=== PATIENT | female | born 2005 | race Caucasian/White ===

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

== ENCOUNTER 2023-01-15 07:28 | Outpatient (RCR) | payer OTHER, SELFPAY | END 2023-02-08 23:59 | LOC: NS 07:28 | PROVIDERS: PCP Nurse Practitioner Family; Referring Provider Nurse Practitioner Family; Visit Provider Nurse Practitioner Family | DX: Z71.3 Dietary counseling and surveillance (principal); E66.9 Obesity, unspecified | CPT/HCPCS: 97803 ==

== ENCOUNTER 2023-02-10 07:24 | Outpatient (RCR) | payer OTHER, SELFPAY | END 2023-03-11 23:59 | LOC: NS 07:24 | PROVIDERS: PCP Nurse Practitioner Family; Referring Provider Nurse Practitioner Family; Visit Provider Nurse Practitioner Family | DX: Z71.3 Dietary counseling and surveillance (principal); E66.9 Obesity, unspecified | CPT/HCPCS: 97803 ==

== ENCOUNTER 2023-02-10 13:00 | Outpatient (CLI) | payer OTHER, SELFPAY ==
[2023-02-10 15:16] LABS: Hemoglobin 13.8 g/dL (12.0-15.0); Mean Corp Hgb Conc 31.4 g/dL (32-36); Mean Corpuscular Hgb 27.7 pg (27.0-32.0); Mean Corpuscular Volume 88.2 fL (81-99); Mean Platelet Vol. 10.5 fl (6.2-12.0); Platelet Count 239 K/mm3 (150-450); RBC Distribution Width SD 41.8 fl (35.1-43.9); Red Blood Count 4.99 M/mm3 (4.2-5.4); White Blood Count 9.3 K/mm3 (4.4-11.0)
[2023-02-10 15:35] LABS: AST(SGOT) 17 U/L (15-37); Alanine Aminotransfer ALT/SGPT 25 U/L (13-56); Albumin, Serum 3.9 g/dL (3.2-5.0); Alkaline Phosphatase 116 U/L (45-117); Anion Gap 6 (5-15); BUN 11 mg/dL (7-18); BUN/Creat Ratio 14.6 RATIO (10-20); Calcium,Total 9.6 mg/dL (8.5-10.1); Chloride 107 mmol/L (98-107); Creatinine, Serum 0.76 mg/dL (0.55-1.02); EST Glomerular Filtration Rate 104 mL/min (>60); Est Glom Filt Rate - Afr Amer 126 mL/min (>60); Globulin 4.1 g/dL (2.2-4.2); Glucose 96 mg/dL (74-106); Potassium 4.1 mmol/L (3.5-5.1); Sodium Level 139 mmol/L (136-145); Thyroid Stim Hormone (TSH) 1.69 uIU/mL (0.358-3.74)
[2023-02-10 15:45] LABS: Vitamin D,25 Hydroxy 26.2 ng/mL
== END 2023-02-10 23:59 | disposition home or self-care (01) ==
PROVIDERS: PCP Nurse Practitioner Family; Referring Provider Nurse Practitioner Family; Visit Provider Nurse Practitioner Family
DX: Z13.6 Encounter for screening for cardiovascular disorders (principal); E55.9 Vitamin D deficiency, unspecified; R63.5 Abnormal weight gain; Z68.51 Body mass index [BMI] pediatric, less than 5th percentile for age
CPT/HCPCS: 36415; 80053; 82306; 84443; 85027

== ENCOUNTER → 2023-08-20 | Outpatient (CLI) | payer OTHER, SELFPAY ==
[2023-08-20 15:41] LABS: Vitamin D,25 Hydroxy 25.9 ng/mL
[2023-08-20 15:54] LABS: ALB/GLOB Ratio 0.8 RATIO (0.9-2.4); AST(SGOT) 24 U/L (15-37); Alanine Aminotransfer ALT/SGPT 33 U/L (13-56); Albumin, Serum 3.7 g/dL (3.2-5.0); Alkaline Phosphatase 97 U/L (45-117); Anion Gap 5 (5-15); BUN 11 mg/dL (7-18); BUN/Creat Ratio 17.1 RATIO (10-20); Calcium,Total 9.7 mg/dL (8.5-10.1); Chloride 107 mmol/L (98-107); Cholesterol 165 mg/dL (200); Creatinine, Serum 0.64 mg/dL (0.55-1.02); EST Glomerular Filtration Rate 125 mL/min (>60); Est Glom Filt Rate - Afr Amer 151 mL/min (>60); Globulin 4.5 g/dL (2.2-4.2); Glucose 82 mg/dL (74-106); High Density Lipoprotein 18 mg/dL; Potassium 4.1 mmol/L (3.5-5.1); Protein, Total 8.2 g/dL (6.4-8.2); Sodium Level 137 mmol/L (136-145); Triglycerides 224 mg/dL; Very Low Density Lipoprotein 45 mg/dL (5-40)
== END | disposition home or self-care (01) ==
PROVIDERS: PCP Nurse Practitioner Family; Referring Provider Nurse Practitioner Family; Visit Provider Nurse Practitioner Family
DX: E55.9 Vitamin D deficiency, unspecified (principal); Z13.6 Encounter for screening for cardiovascular disorders
CPT/HCPCS: 36415; 80053; 80061; 82306

== ENCOUNTER → 2024-02-18 | Outpatient (CLI) | payer OTHER, SELFPAY ==
[2024-02-18 11:02] LABS: ALB/GLOB Ratio 0.9 RATIO (0.9-2.4); AST(SGOT) 17 U/L (15-37); Alanine Aminotransfer ALT/SGPT 31 U/L (13-56); Albumin, Serum 3.7 g/dL (3.2-5.0); Alkaline Phosphatase 101 U/L (45-117); Anion Gap 5 (5-15); BUN 10 mg/dL (7-18); BUN/Creat Ratio 13.6 RATIO (10-20); Calcium,Total 9.5 mg/dL (8.5-10.1); Chloride 107 mmol/L (98-107); Cholesterol 176 mg/dL (200); Creatinine, Serum 0.74 mg/dL (0.55-1.02); EST Glomerular Filtration Rate 106 mL/min (>60); Est Glom Filt Rate - Afr Amer 128 mL/min (>60); Globulin 4.1 g/dL (2.2-4.2); Glucose 128 mg/dL (74-106); High Density Lipoprotein 20 mg/dL; Potassium 4.1 mmol/L (3.5-5.1); Protein, Total 7.8 g/dL (6.4-8.2); Sodium Level 137 mmol/L (136-145); Triglycerides 366 mg/dL; Very Low Density Lipoprotein 73 mg/dL (5-40); Vitamin D,25 Hydroxy 34.1 ng/mL
== END | disposition home or self-care (01) ==
LOC: MTLAB 07:36
PROVIDERS: PCP Nurse Practitioner Family; Referring Provider Nurse Practitioner Family; Visit Provider Nurse Practitioner Family
DX: E78.5 Hyperlipidemia, unspecified (principal); E78.1 Pure hyperglyceridemia; E55.9 Vitamin D deficiency, unspecified
CPT/HCPCS: 36415; 80053; 80061; 82306

== ENCOUNTER → 2024-05-24 | Outpatient (CLI) | payer OTHER, SELFPAY ==
[2024-05-24 09:48] LABS: ALB/GLOB Ratio 1.4 RATIO (0.9-2.4); AST(SGOT) 23 U/L (<=31); Alanine Aminotransfer ALT/SGPT 20 U/L (<=34); Albumin, Serum 4.3 g/dL (3.5-5.0); Alkaline Phosphatase 63 U/L (35-104); Anion Gap 10 (5-15); BUN 12 mg/dL (4-19); BUN/Creat Ratio 14.8 RATIO (10-20); Calcium,Total 9.7 mg/dL (7.6-11.0); Carbon Dioxide 22.3 mmol/L (21.0-32.0); Chloride 107 mmol/L (98-108); EST Glomerular Filtration Rate 107 (>60); Glucose 107 mg/dL (70-99); Potassium 4.1 mmol/L (3.3-5.1); Protein, Total 7.3 g/dL (5.9-8.4); Sodium Level 139 mmol/L (133-145); Total Bilirubin 0.28 mg/dL (0.00-1.30)
[2024-05-24 10:34] LABS: Cholesterol 193 mg/dL (<=190); High Density Lipoprotein 21 mg/dL; Low Density Lipoprotein Calc. 140 mg/dL; Triglycerides 162 mg/dL; Very Low Density Lipoprotein 32 mg/dL (5-40); cholesterol:hdl ratio screen 9.23
== END | disposition home or self-care (01) ==
LOC: LAB 07:26
PROVIDERS: PCP Nurse Practitioner Family; Referring Provider Nurse Practitioner Family; Visit Provider Nurse Practitioner Family
DX: E78.5 Hyperlipidemia, unspecified (principal); E78.1 Pure hyperglyceridemia; E78.6 Lipoprotein deficiency; R73.01 Impaired fasting glucose
CPT/HCPCS: 36415; 80053; 80061

== ENCOUNTER → 2024-06-07 | Outpatient (CLI) | payer OTHER, SELFPAY ==
[2024-06-10 21:33] LABS: HPV Reflexed? NOT INDICATED
== END | disposition home or self-care (01) ==
LOC: LABSPEC 16:10
PROVIDERS: PCP Nurse Practitioner Family; Referring Provider Nurse Practitioner Family; Visit Provider Nurse Practitioner Family
DX: Z12.4 Encounter for screening for malignant neoplasm of cervix (principal)
CPT/HCPCS: 88175; G0145

== ENCOUNTER → 2024-10-28 | Outpatient (CLI) | payer OTHER, SELFPAY ==
--- OUTSIDE RECORDS SUMMARY | 2024-10-28 16:41 | XMS RPT_ITS | CCD ---
Author Organization [facility] Care Team Providers Care Crime Prevention Police Officer Name Role Phone Amarilys CLERICAL AND ADMINISTRATIVE WORKERS, CLERICAL AND ADMINISTRATIVE WORKERS-C Vito Miramontes Primary Care Pr ovider Amarilys CLERICAL AND ADMINISTRATIVE WORKERS, CLERICAL AND ADMINISTRATIVE WORKERS-C Vito Miramontes Referring Provi charline Dr. Kristy Frazier Attending Provider [phone] Dr. Chaevz Hernandez Attending Provider [phone] Amarilys GENAO, CLERICAL AND ADMINISTRATIVE WORKERS-C Vito Miramontes Primary Care Pr ovider Dr. Chavez Hernandez Attending Provider Amarilys CLERICAL AND ADMINISTRATIVE WORKERS, CLERICAL AND ADMINISTRATIVE WORKERS-C Vito Miramontes Referring Provi charline Dr. Kristy Frazier Attending Provider [phone] Amarilys CLERICAL AND ADMINISTRATIVE WORKERS, CLERICAL AND ADMINISTRATIVE WORKERS-C Vito Miramontes Primary Care Pr ovider Amarilys GENAO, CLERICAL AND ADMINISTRATIVE WORKERS-C Vito Miramontes Referring Provi charline Dr. Kristy Frazier Attending Provider [phone] Amarilys CLERICAL AND ADMINISTRATIVE WORKERS-C, Vito Miramontes Primary Care Provi charline Amarilys CLERICAL AND ADMINISTRATIVE WORKERS-CVito Attending Provider Amarilys CLERICAL AND ADMINISTRATIVE WORKERS-CVito Referring Provider Amarilys CLERICAL AND ADMINISTRATIVE WORKERS-C, Vito Miramontes Primary Care Provi charline Amarilys CLERICAL AND ADMINISTRATIVE WORKERS-CVito Attending Provider Amarilys CLERICAL AND ADMINISTRATIVE WORKERS-C, Vito Miramontes Referring Provider Giovanni GENAO-C, Marry Attending Provider Giovanni CLERICAL AND ADMINISTRATIVE WORKERS-C, Marry Referring Provider [phone] Freddie OLIVER, Dr. Wagner Attending Provider Mary CHOI, Dr. Byrne Attending Provider Alok CLERICAL AND ADMINISTRATIVE WORKERS-C, Sveen Attending Provider AMARILYS REPAIR ARMATURE WINDER HELPER - OUTREACH NURSE, VITO Burkett Primary Care Phys ician AMARILYS REPAIR ARMATURE WINDER HELPER - OUTREACH NURSE, VITO Burkett Primary Care U navailable BROWN REPAIR ARMATURE WINDER HELPER-OUTREACH NURSE, LEONOR Moreno Attending Unavai lable AMARILYS REPAIR ARMATURE WINDER HELPER - OUTREACH NURSE, VITO Burkett Primary Care U navailable AMARILYS REPAIR ARMATURE WINDER HELPER - OUTREACH NURSE, VITO Burkett Attending U navailable [place] CLERICAL AND ADMINISTRATIVE WORKERS-C, Vito Miramontes Primary Care Provi charline Amarilys CLERICAL AND ADMINISTRATIVE WORKERS-C, Vito Miramontes Referring Provider Giovanni CLERICAL AND ADMINISTRATIVE WORKERS-C, Marry Attending Provider [phone] Marry Davila Attending Unavailable Amarilys CLERICAL AND ADMINISTRATIVE WORKERS, Vito Miramontes Primary Care Unav ailable Amarilys CLERICAL AND ADMINISTRATIVE WORKERS, Vito Miramontes Referring Unav ailable [place] CLERICAL AND ADMINISTRATIVE WORKERS, Vito Miramontes Referring Unav ailable Dossi, Kristy Attending Unavailable Amarilys CLERICAL AND ADMINISTRATIVE WORKERS, Vito Miramontes Primary Care Unav ailable Dossi, Kristy Attending Unavailable Amarilys CLERICAL AND ADMINISTRATIVE WORKERS, Vito Miramontes Primary Care Unav ailable Amarilys CLERICAL AND ADMINISTRATIVE WORKERS, Vito Miramontes Referring Unav ailable Amarilys CLERICAL AND ADMINISTRATIVE WORKERS, Vito Miramontes Attending Unav ailable Amarilys CLERICAL AND ADMINISTRATIVE WORKERS, Vito Miramontes Primary Care Unav ailable Amarilys CLERICAL AND ADMINISTRATIVE WORKERS, Vito Miramontes Referring Unav ailable [place] CLERICAL AND ADMINISTRATIVE WORKERS, Vito Miramontes Attending Unav ailable Amarilys CLERICAL AND ADMINISTRATIVE WORKERS, Vito Miramontes Primary Care Unav ailable Marry Davila Referring Unavailable Marry Davila Attending Unavailable [place] CLERICAL AND ADMINISTRATIVE WORKERS, Vito Miramontes Primary Care Unav ailable Dossi, Kristy Attending Unavailable [place] CLERICAL AND ADMINISTRATIVE WORKERS, Vito Miramontes Referring Unav ailable [place] CLERICAL AND ADMINISTRATIVE WORKERS, Vito Miramontes Primary Care Unav ailable Amarilys CLERICAL AND ADMINISTRATIVE WORKERS, Vito Miramontes Referring Unav ailable Aris RECINOS, John Attending Unavailable [place] CLERICAL AND ADMINISTRATIVE WORKERS, Vito Miramontes Primary Care Unav ailable [place] CLERICAL AND ADMINISTRATIVE WORKERS, Vito Miramontes Referring Unav ailable Marry Davila Attending Unavailable Amarilys CLERICAL AND ADMINISTRATIVE WORKERS, Vito Miramontes Primary Care Unav ailable [place] CLERICAL AND ADMINISTRATIVE WORKERS, Vito Miramontes Referring Unav ailable Dossi, Kristy Attending Unavailable [place] CLERICAL AND ADMINISTRATIVE WORKERS, Vito Miramontes Primary Care Unav ailable Amarilys CLERICAL AND ADMINISTRATIVE WORKERS, Vito Miramontes Referring Unav ailable Dossi, Kristy Attending Unavailable [place] CLERICAL AND ADMINISTRATIVE WORKERS, Vito Miramontes Primary Care Unav ailable Amarilys CLERICAL AND ADMINISTRATIVE WORKERS, Vito Miramontes Primary Care Unav ailable Dossi, Kristy Attending Unavailable Amarilys CLERICAL AND ADMINISTRATIVE WORKERS, Vito Miramontes Referring Unav ailable Amarilys CLERICAL AND ADMINISTRATIVE WORKERS, Vito Miramontes Primary Care Unav ailable MaryChavez pinzon Attending Unavailable Amarilys CLERICAL AND ADMINISTRATIVE WORKERS, Vito Miramontes Primary Care Unav ailable Dossi, Kristy Attending Unavailable [place] CLERICAL AND ADMINISTRATIVE WORKERS, Vito Miramontes Referring Unav ailable Amarilys CLERICAL AND ADMINISTRATIVE WORKERS, Vito Miramontes Referring Unav ailable [place], Seven Attending Unavailable Amarilys CLERICAL AND ADMINISTRATIVE WORKERS, Vito Miramontes Primary Care Unav ailable Medications Current Medications Medication Drug Class(es) Dates Sig (Normalized) Sig (Original) azithromycin 250 mg oral tablet (1 source) Macrolide Antimicrobial Start: 09-16-2024 End: 09-21-2024 Zithromax 250 mg oral tablet Dose : 250 mg = 1 tab(s), Oral, qDay, follow directions on Z-Reinaldo, X 5 day(s), # 6 tab(s), 0 Refill(s), 09/21/24 11:50:00 AM EDT, Pharmacy: [id number], Tonsillitis Acute pharyngitis, 171.5, cm, 09/16/24 11:36:00 EDT, Height, 83, kg, 09/16/24 11:36:00 EDT, Dosing Weight Start Date: 09/16/24 Stop Date: 09/21/24 Status: Ordered Medication Dispense Status: Completed Quantity: 6.0 Unit: tab(s) Total Allowed Fills: 1 Fills Dispensed: 0 Indications: Acute tonsillitis, unspecified; Acute pharyngitis, unspecified; cholecalciferol 1.25 mg oral capsule (9 sources) Vitamin D Start: 05-24-2024 End: 11-20-2024 take 1 capsule by mouth once, then take 1 capsule by mouth every month cholecalciferol 1250 mcg (50,000 intl units) oral capsule Dose : 50,000 International_Unit = 1 cap(s), Oral, qmonth, # 4 cap(s), 1 Refill(s), Pharmacy: [facility] [id number], Vitamin D deficiency, 171.5, cm, 05/24/24 15:49:00 EDT, Height, kg, 05/24/24 15:49:00 EDT, Dosing Weight Start Date: 05/24/24 Stop Date: 11/20/24 Status: Ordered Medication Dispense Status: Completed Quantity: 4.0 Unit: cap(s) Total Allowed Fills: 2 Fills Dispensed: 0 Indications: Vitamin D deficiency, unspecified; Start: 2024 take 1 capsule by mo uth every month Cholecalciferol (Vitamin D3) 1,250 mcg (50,000 unit) capsule Active 1250 ug PO EVERY MONTH 2024 12:00am dexamethasone 6 mg oral tablet (1 source) Corticosteroid Start: 09-16-2024 End: 09-23-2024 dexAMETHasone 6 mg oral tablet Dose : 6 mg = 1 tab(s), Oral, qDay, X 7 day(s), # 7 tab(s), 0 Refill(s), 09/23/24 11:52:00 AM EDT, Pharmacy: [id number], Tonsillitis Acute pharyngitis, 171.5, cm, 09/16/24 11:36:00 EDT, Height, kg, 09/16/24 11:36:00 EDT, Dosing Weight Start Date: 09/16/24 Stop Date: 09/23/24 Status: Ordered Medication Dispense Status: Completed Quantity: 7.0 Unit: tab(s) Total Allowed Fills: 1 Fills Dispensed: 0 Indications: Acute tonsillitis, unspecified; Acute pharyngitis, unspecified; fenofibrate 145 mg oral tablet (9 sources) Peroxisome Proliferator Receptor alpha Agonist Start: 2024 End: 11-20-2024 take 1 tablet by mouth once daily Fenofibrate Nanocrystallized 145 mg tablet Active 145 mg PO daily 2024 12:00am sertraline 50 mg oral tablet (20 sources) Serotonin Reuptake Inhibitor Start: 2024 End: 11-20-2024 take 1 tablet by mouth once daily Sertraline 50 mg tablet Active 50 mg PO daily 2024 12:00am Start: 01-16-2022 End: 2024 take 1 tablet by mouth once daily Sertraline 25 mg tablet Discontinued 25 mg PO DAILY 30 0 January 16, 2022 1:00am 2024 8:35am Completed/Discontinued Medications Medication Drug Class(es) Dates Sig (Normalized) Sig (Original) acetaminophen 325 mg oral capsule (14 sources) Start: 01-16-2022 End: 05-20-2022 take 1 capsule by mouth once as needed Acetaminophen (Tylenol) 325 mg capsule Discontinued 325 mg PO ONCE as needed January 16, 2022 1:00am May 20, 2022 9:25am benzocaine 15 mg / menthol 10 mg oral lozenge (8 sources) Standardized Chemical Allergen Start: 12-24-2023 End: 2024 Benzocaine-Menthol (Chloraseptic Max) 15-10 mg lozenge Discontinued 1 NMA MUCOUS MEM .4 times daily as needed for sore throat 15 0 December 24, 2023 1:00am 2024 8:34am Levonorgestrel-Ethi nyl Estrad (14 sources) Progestin, Estrogen, Progestin-containi ng Intrauterine Device Start: 01-16-2022 End: 2024 take 1 tablet by mouth once daily Levonorgestrel-Ethi nyl Estrad (Vienva) 0.1-20 mg-mcg tablet Discontinued 1 {tbl} PO DAILY January 16, 2022 1:00am 2024 8:34am Start: 01-16-2022 take 1 tablet by manuel th once daily Levonorgestrel-Ethinyl Estrad (Vienva) 0.1-20 mg-mcg tablet Active 1 TABLET PO DAILY January 16, 2022 12:00am Start: 01-16-2022 take 1 tablet by manuel th once daily Levonorgestrel-Ethinyl Estrad (Vienva) 0.1-20 mg-mcg tablet Active 1 TABLET PO DAILY January 16, 2022 1:00am methocarbamol 500 mg oral tablet (3 sources) Muscle Relaxant Start: 08-03-2024 End: 10-06-2024 take 1 tablet by mouth three times daily as needed for pain Methocarbamol 500 mg tablet Discontinued 500 mg PO THREE TIMES A DAY as needed for pain/spasms 30 0 August 03, 2024 12:00am October 06, 2024 8:23am Problems Active Problems Problem Classification Problem Date Documented Da te Episodic/Chronic Acute and chronic tonsillitis (3 sources) Tonsillitis; Translations: [Acute tonsillitis, unspecified] Onset: 09-16-2024 09-16-2024 Episodic Anxiety disorders (15 sources) Social phobia; Translations: [Social phobia, unspecified] 01-16-2022 Chronic Conditions associated with dizziness or vertigo (20 sources) Lightheadedness; Translations: [Dizziness and giddiness] 01-16-2022 Episodic Diabetes mellitus without complication (1 source) Impaired fasting glycemia 02-19-2024 Episodic Disorders of lipid metabolism (3 sources) Hyperlipidemia; Translations: [Hypertriglyceride lyn] Onset: 05-30-2024 08-21-2023 Chronic Menstrual disorders (13 sources) Irregular periods; Translations: [Irregular menstruation, unspecified] 06-07-2024 Chronic Nutritional deficiencies (1 source) Vitamin D deficiency 02-16-2023 Chronic Other bone disease and musculoskeletal deformities (20 sources) Segmental and somatic dysfunction; Translations: [Segmental and somatic dysfunction of cervical region] 09-02-2022 Episodic Other bone disease and musculoskeletal deformities (18 sources) Segmental and somatic dysfunction of lumbar region; Translations: [Nonallopathic lesions, lumbar region] Onset: 08-03-2024 06-17-2022 Episodic Other bone disease and musculoskeletal deformities (18 sources) Segmental and somatic dysfunction of sacral region; Translations: [Nonallopathic lesions, sacral region] Onset: 08-03-2024 06-17-2022 Episodic Other bone disease and musculoskeletal deformities (18 sources) Segmental and somatic dysfunction of thoracic region; Translations: [Nonallopathic lesions, thoracic region] Onset: 08-03-2024 06-17-2022 Episodic Other bone disease and musculoskeletal deformities (10 sources) Segmental and somatic dysfunction of cervical region; Translations: [Nonallopathic lesions, cervical region] Onset: 08-03-2024 09-02-2022 Episodic Other bone disease and musculoskeletal deformities (1 source) Segmental and somatic dysfunction of pelvic region; Translations: [Segmental and somatic dysfunction of pelvic region] Onset: 08-03-2024 Episodic Other nutritional; endocrine; and metabolic disorders (1 source) 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 Other nutritional; endocrine; and metabolic disorders (1 source) Overweight in adulthood with body mass index of 25 or more but less than 30 02-16-2023 Episodic Other skin disorders (2 sources) Abnormal hair finding; Translations: [Other hair color and hair shaft abnormalities] 10-06-2024 Episodic Other skin disorders (1 source) Other hair color and hair shaft abnormalities; Translations: [Other hair color and hair shaft abnormalities] Onset: 10-06-2024 Episodic Residual codes; unclassified (1 source) Increased body mass index 02-17-2022 Episodic Residual codes; unclassified (2 sources) Reduced libido; Translations: [Decreased libido] 10-06-2024 Episodic Residual codes; unclassified (1 source) Decreased libido; Translations: [Decreased libido] Onset: 10-06-2024 Episodic Spondylosis; intervertebral disc disorders; other back problems (20 sources) Backache; Translations: [Dorsalgia, unspecified] 07-29-2022 Episodic Unclassified (3 sources) Patient encounter status 02-16-2023 Unclassified (1 source) Vaccination needed 02-17-2022 Past or Other Problems Problem Classification Problem Date Documented Da te Episodic/Chronic Other screening for suspected conditions (not mental disorders or infectious disease) (1 source) Encounter for screening for malignant neoplasm of cervix; Translations: [Encounter for screening for malignant neoplasm of cervix] Onset: 06-13-2024 Episodic Other upper respiratory infections (15 sources) Acute pharyngitis; Translations: [Acute pharyngitis, unspecified] Onset: 12-24-2023 12-24-2023 Episodic Results Test Name Value Interpretation Reference Range Facility Supervisor [employer] Office Visit Reporton 10-06-2024 Supervisor [employer] Office Visit Report [facility] [address], [address] [place] [address] OFFICE VISIT Date of Service: 10/06/24 MR#: [id number] Acct: [id number] Name: TAMI FUNG #: [id number] : 2005 Provider: ANURADHA Garnett Age/Sex: 19/F Location[place] [facility] Status: Signed Intake Vital Signs 07/28/24 10:34 10/06/24 08:24 10/06/24 08:24 Height 5 ft 9 in 5 ft 9 in 5 ft 9 in Weight: 182 lb 2 oz BMI 26.9 BP 125/84 H Intake Visit Reasons: Low Libido Sales Order Specialist Required: No Is patient in pain?: No Allergies No Known Allergies Allergy (Verified 10/06/24 08:20) Medications ???Medication ???Instructions ???Recorded ???Confirmed ???Type cholecalciferol (vitamin D3) 1,250 1,250 mcg PO QMONTH 04/21/24 History mcg (50,000 unit) capsule fenofibrate nanocrystallized 145 145 mg PO QDAY 04/21/24 10/06/24 H istory mg tablet sertraline 50 mg tablet 50 mg PO QDAY 04/21/24 10/06/24 Hi story Is last menstrual period known: Yes Last Menstrual Period: 09/15/24 Post menopausal: No Patient : No : No Control Method: none PFSH Medical History Sore throat Vitamin D deficiency High triglycerides Social anxiety disorder Family History Mother Diabetes Hormone imbalance Grandmother Diabetes Skin cancer Grandfather Diabetes Heart disease Social History adopted: No number of children: 0 current occupational status: employed 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 She reports she has noticed this more over the past year. No desire; currently sexually active with emiliano. One partner. She reports she has also experienced facial hair, irregular periods. She would like to pursue evaluation for this. Female Reproductive History Last Menstrual Period: 09/15/24 History 0 Elective abortions Hx Para Spontaneous abortions Hx # Term Pregnancies Ectopic pregnancies Hx # Pregnancies Multiple births # of living children ROS Const Constitutional: Denies fatigue Resp Resp: Denies cough Psych Psych: Denies anxiety (controlled on medications.) or depression Endo Endo: Denies cold intolerance, excessive sweating or heat intolerance Exam Const General: cooperative, healthy appearing, comfortable, no acute distress, well groomed and well hydrated Nutritional Appearance: well nourished Orientation: alert, awake and oriented x3 Resp Effort Inspection: normal respiratory effort, able to speak in complete sentences and symmetric chest movement Neuro General: patient alert, patient awake, patient oriented x3 and moves all extremities Psych Appearance: grossly normal Mental Status: mental status grossly normal Affect: normal affect Speech and Movement: speech and movement normal Attitude: cooperative Coding Level of Care Code Established Pt Off vis,est,level 3 Patient Type Established Diagnoses Abnormal facial hair L67.8 Low libido R68.82 Assessment and Plan Assessment and Plan (1) Abnormal facial hair: Status: Acute Plan: check labs; consider spirolactone. Final plan with results. (2) Low libido: Status: Acute Plan: Discussed scheduled thought processes. Encouraged to contact PCP for discussion of sertraline side effects and if this may be related/modified. Encouraged open discussion with emiliano. Orders: Orders Testosterone Free Today L67.8 - Other hair color and hair shaft abnormalities, R68.82 - Decreased libido DHEA Sulfate Today L67.8 - Other hair color and hair shaft abnormalities, R68.82 - Decreased libido Plan Details Goals Barriers: Goals Decrease pain Decrease spasm Improve ROM 10/06/24 0854 Date Marry Davila NP-C Cosigner Signature: Date (if applicable) CC: Normal [facility] No Panel Informationon 09-16 Culture Throat Normal throat nazia present Sensitivity Testing: Not Indicated [facility] Macario Rapid group A Streptococcus antigen assay at point of careOrdered By: Seven Dickinson on 08-16-2024 S. pyogenes Ag IA.rapid Ql (Throat) Negative [facility] Urgent Care Visit Reporton 0 08-16-2024 Urgent Care Visit Report [facility] [address], [address] [place] [address] OFFICE VISIT Date of Service: 08/16/24 MR#: [id number] Acct: [id number] Name: TAMI FUNG EDWARD Rep #: [id number] : 2005 Provider: ANURADHA Dickinson Age/Sex: 19/F Location: [facility] Status: Signed Intake Vital Signs 07/28/24 10:34 08/16/24 07:48 Height 5 ft 9 in BP 100/60 Position Sitting Respiration 16 Pulse 63 Temp 98.3 F Temp Source Oral Pulse Oximetry (%) 63 Oxygen Delivery Method room air Intake Visit Reasons: SORE THROAT Accompanied by: Self Allergies No Known Allergies Allergy (Verified 08/03/24 10:51) Nurse's Note: Patient has a sore throat that has been going on since Sat. 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 She otherwise denies any fever, cough, congestion, or ear pain. Denies any known sick contacts. ROS: As noted in HPI Physical Exam: VITALS: Reviewed. GEN: Healthy appearing, well-developed, NAD. PSYCH: AOx3. Normal memory, mood, and affect. HEENT -Eyes: -No discharge or redness; -Ears: -Mouth and throat: Moist mucous membranes. No tonsillar swelling or exudate noted. NECK: CV: Regular rate and rhythm LUNGS: Normal respiratory effort. Lungs clear bilaterally. SKIN: Warm, well perfused. No skin rashes or abnormal lesions noted. MSK: Normal gait. NEURO: Ambulating with no limitations. Normal muscle strength and tone. No focal deficits. Results POC Keri Rapid Strep POC Keri Rapid Strep Negative Last Edit by Jillian Michaud MA on 08/16/24 08:07 Coding Level of Care Code Off vis,new,level 3 Diagnoses Sore throat J02.9 Assessment and Plan Assessment and Plan (1) Sore throat: Status: Acute Plan: - suspect viral - Strep negative in the office today - Discussed supportive care treatment with fluids, rest and analgesia. - The patient may also use OTC cough and cold meds as needed and warm salt water gargles, throat lozenges and/or OTC throat spray as needed. - Contagious dz precautions discussed - The patient should follow up in one week if symptoms persist or worsen Orders: Orders POC Keri Rapid Strep A Today Plan Details Goals Barriers: Goals Decrease pain Decrease spasm Improve ROM 08/16/24 0808 Date Seven Velásquez Signature: Date (if applicable) CC: Normal [facility] Chiropractic Reporton 2024 Chiropractic Report [facility] Chiropractic [facility] [place] [address] OFFICE VISIT Date of Service: 08/03/24 MR#: [id number] Acct: [id number] Name: TAMI FUNG Rep #: [id number] : 2005 Provider: BENITO Anne Age/Sex: 19/F Location[place] [facility] Status: Signed Intake Vital Signs 07/28/24 10:34 Height 5 ft 9 in Intake Visit Reasons: LBP Chief Complaint: low back pain Is patient in pain?: Yes (low back ) Pain scale (1-10): 6 Allergies No Known Allergies Allergy (Verified 08/03/24 10:51) Medications ???Medication ???Instructions ???Recorded ???Confirmed ???Type cholecalciferol (vitamin D3) 1,250 1,250 mcg PO QMONTH 04/21/24 History mcg (50,000 unit) capsule fenofibrate nanocrystallized 145 145 mg PO QDAY 04/21/24 08/03/24 H istory mg tablet sertraline 50 mg tablet 50 mg PO QDAY 04/21/24 08/03/24 Hi story methocarbamol 500 mg tablet 500 mg PO TID PRN pain/spasms #30 08/03/24 08/03/24 Rx tabs PFSH Medical History Vitamin D deficiency High triglycerides Social anxiety disorder Family History Mother Diabetes Hormone imbalance Grandmother Diabetes Skin cancer Grandfather Diabetes Heart disease Social History adopted: No number of children: 0 current occupational status: employed 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 Donation Specialist HPI LBP Chief Complaint: Low back pain Visit Number: 4 Details: Belle is a 19 year old female here to f/u on low back pain. Pt. advises she has been experiencing low back spasms since her last adjustment. She states it is a constant aching pain across her low back. She rates her pain 6/10 today. She states prolonged sitting, standing, bending or walking aggravates her low back pain. She has been treating pain at home with ice, Ibuprofen,a heating pad and stretches often with little relief. Pt. denies new injury, numbness or tingling. Belle reports chiropractic adjustments and E-stim are helpful in relieving her pain and discomfort but it gradually returns. Onset: 07/20/24 Location: Neck/Back Duration: frequent Aggravating or associated factors: working,bending over, standing upright Relieving factors: chiro Treatment: stretching,chiro Pain Quality: aching and dull Exam Musc General: Yes normal posture, normal gait, joint tenderness and decreased range of motion; No muscle weakness Cervical Spine: Yes normal cervical lordosis Thoracic/Lumber: Yes thoracic and lumbar spine normal to inspection, Yes paraspinal tenderness on the right greater than left (lumbopelvic), Yes thoraco-lumbar spasm bilaterally (lumbar paraspinal, QL, glute medius) in the lower thoracic, in the upper lumbar, in the mid lumbar and in the lower lumbar and Yes misalignment T5, T6, T7, L3, L4, L5 and RIL Sacroiliac joints: on the right tender to palpation Office Procedures Procedures - Chiropractic Procedures Manipulation: Lumbar L3, Thoracic T10 and Pelvis RIL Manipulation: 3-4 regions Electronic Stimulation: Yes Electrical Stimulation: Lumbar 15 mins (9) mA Therapy Performed by:: Mona Solares Patient Response: positive Assessment and Plan Assessment and Plan (1) Segmental and somatic dysfunction of lumbar region: Status: Acute (2) Segmental and somatic dysfunction of thoracic region: Status: Acute (3) Segmental and somatic dysfunction of pelvic region: Status: Acute Orders: Orders Chiropractic Treatments 08/03/24 M99.01 - Segmental and somatic dysfunction of cervical region, M99.02 - Segmental and somatic dysfunction of thoracic region, M99.03 - Segmental and somatic dysfunction of lumbar region, M99.04 - Segmental and somatic dysfunction of sacral region, M99.05 - Segmental and somatic dysfunction of pelvic region Plan Patient was treated with non rotational adjustment, well tolerated. Provided her continued restrictions at home. Continue care, she has shown no progress. Plan Details Goals Barriers: Goals Decrease pain Decrease spasm Improve ROM Follow Up: 2x/wk Coding Level of Care Code No Charge Diagnoses Segmental and somatic dysfunction of lumbar region M99.03 Segmental and somatic dysfunction of thoracic region M99.02 Segmental and somatic dysfunction of pelvic region M99.05 CPT Codes Procedu (more content not included)... Normal [facility] Radiology Reporton Radiology Report [facility] [address] [place] [address] 08/02/24 1641 MR#: [id number] Acct: [id number] Name: TAMI FUNG EDWARD Rep #: [id number] : 2005 19 From: Kristy Frazier D.C. PCP: Vito Panda, [employer] Status:DEP AMB [place] [facility] X-Ray Report Impression Impression: Patients Name: TAMI FUNG : 2005 Views Submitted: a routine lumbosacral series was accomplished on 07/28/24 at [facility]. The lumbar series reveals in the AP view left spinous process rotation from L3-L4.??? There is no leg length inequality on the right/left.??? There is no rotation of the bilateral/right/left hardeep on sacrum.??? Sacrum is level. Soft tissue structures are unremarkable. The lateral lumbar view demonstrates a lordotic lumbar spine.??? The disc space is mildly reduced at L5-S1. Oblique views revealed normal facet joints. No indication of fracture or instability. IMPRESSION: 1. Mild decrease in L5/S1 disc height. Dictated by Performing Provider: Kristy Frazier Coding Level of Care Code Spine Lumbarsacral 4 views 08/02/24 1644 Date Kristy Frazier D.C. Signed Normal [facility] Chiropractic Reporton 06-23- 2025 Chiropractic Report [facility] [address] [place] [address] OFFICE VISIT Date of Service: 08/01/24 MR#: [id number] Acct: [id number] Name: TAMI FUNG Rep #: [id number] : 2005 Provider: BENITO Anne Age/Sex: 19/F Location[place] [facility] [place] Status: Signed Intake Vital Signs 07/28/24 10:34 Height 5 ft 9 in Intake Visit Reasons: LBP Chief Complaint: low back pain Is patient in pain?: Yes (low back mostly on right and down into gluteal) Pain scale (1-10): 5 Allergies No Known Allergies Allergy (Verified 08/01/24 16:22) Medications ???Medication ???Instructions ???Recorded ???Confirmed ???Type cholecalciferol (vitamin D3) 1,250 1,250 mcg PO QMONTH 04/21/24 History mcg (50,000 unit) capsule fenofibrate nanocrystallized 145 145 mg PO QDAY 04/21/24 08/01/24 H istory mg tablet sertraline 50 mg tablet 50 mg PO QDAY 04/21/24 08/01/24 Hi story PFSH Medical History Vitamin D deficiency High triglycerides Social anxiety disorder Family History Mother Diabetes Hormone imbalance Grandmother Diabetes Skin cancer Grandfather Diabetes Heart disease Social History adopted: No number of children: 0 current occupational status: employed 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 Pt. advises she had some improvement after her last adjustment but it's still there and more on right and down into gluteal. She states she has been having aching pain. She rates her pain 5/10 with the right side being slightly worse. She states prolonged sitting, standing, bending or walking aggravates her low back pain. She has been treating pain at home with ice, Ibuprofen,a heating pad and stretches often. Pt. denies numbness or tingling. Belle reports chiropractic adjustments and E-stim are helpful in relieving her pain and discomfort but it gradually returns. Onset: 07/20/24 Location: Neck/Back Duration: frequent Aggravating or associated factors: working,bending over, standing upright Relieving factors: chiro Treatment: stretching,chiro Pain Quality: aching and dull Exam Musc General: Yes normal posture, normal gait, joint tenderness and decreased range of motion; No muscle weakness Cervical Spine: Yes normal cervical lordosis Thoracic/Lumber: Yes thoracic and lumbar spine normal to inspection, Yes paraspinal tenderness on the right greater than left (lumbopelvic), Yes thoraco-lumbar spasm bilaterally (lumbar paraspinal, QL, glute medius) in the lower thoracic, in the upper lumbar, in the mid lumbar and in the lower lumbar and Yes misalignment T5, T6, T7, L3, L4, L5 and RIL Sacroiliac joints: on the right tender to palpation Office Procedures Procedures - Chiropractic Procedures Manipulation: Lumbar L3, Thoracic T10 and Pelvis RIL Manipulation: 3-4 regions Electronic Stimulation: Yes Electrical Stimulation: Cervical 15 mins (10) mA Therapy Performed by:: Mona Solares Traction, Mechanical: Yes Patient Response: positive Assessment and Plan Assessment and Plan (1) Segmental and somatic dysfunction of lumbar region: Status: Acute (2) Segmental and somatic dysfunction of thoracic region: Status: Acute (3) Segmental and somatic dysfunction of pelvic region: Status: Acute (4) Back pain: Status: Acute Qualifiers: Back pain location: low back pain Chronicity: acute Back pain laterality: right Sciatica presence: without sciatica Qualified Code(s): M54.50 - Low back pain, unspecified Orders: Orders Chiropractic Treatments 08/01/24 M99.01 - Segmental and somatic dysfunction of cervical region, M99.02 - Segmental and somatic dysfunction of thoracic region, M99.03 - Segmental and somatic d ysfunction of lumbar region, M99.04 - Segmental and somatic dysfunction of sacral region, M99.05 - Segmental and somatic dysfunction of pelvic region Plan Patient was treated without incident. She is showing slow improvement. Continue care. Plan Details Goals Barriers: Goals Decrease pain Decrease spasm Improve ROM Follow Up: 1 Week Coding Level of Care Code No Charge Diagnoses Segmental and somatic (more content not included)... Normal [facility] Chiropractic Reporton 2024 Chiropractic Report [facility] [address], [place] [address] OFFICE VISIT Date of Service: 07/28/24 MR#: [id number] Acct: [id number] Name: TAMI FUNG EDWARD Rep #: [id number] : 2005 Provider: BENITO Anne Age/Sex: 19/F Location: [facility] [place] Status: Signed Intake Vital Signs 07/25/24 09:24 Height 5 ft 9 in Intake Visit Reasons: LBP Chief Complaint: low back pain Is patient in pain?: Yes (low back) Pain scale (1-10): 7 Allergies No Known Allergies Allergy (Verified 07/28/24 10:12) Medications ???Medication ???Instructions ???Recorded ???Confirmed ???Type cholecalciferol (vitamin D3) 1,250 1,250 mcg PO QMONTH 04/21/24 History mcg (50,000 unit) capsule fenofibrate nanocrystallized 145 145 mg PO QDAY 04/21/24 07/28/24 H istory mg tablet sertraline 50 mg tablet 50 mg PO QDAY 04/21/24 07/28/24 Hi story PFSH Medical History Vitamin D deficiency High triglycerides Social anxiety disorder Family History Mother Diabetes Hormone imbalance Grandmother Diabetes Skin cancer Grandfather Diabetes Heart disease Social History adopted: No number of children: 0 current occupational status: employed 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 Pt. advises she had some improvement after her last adjustment but then stood up after bending over cleaning and had sharp pain in her low back. She states she has been having pain with intermittent sharp twinges ever since. She rates her pain 7/10 with the right side being slightly worse. She reports the pain extends into her bilateral hips and glutes. She states prolonged sitting, standing, bending or walking aggravates her low back pain. She has been treating pain at home with ice, Ibuprofen,a heating pad and stretches often. Pt. denies numbness or tingling. Belle reports chiropractic adjustments and E-stim are helpful in relieving her pain and discomfort but it gradually returns. Onset: 07/20/24 Location: Neck/Back Duration: frequent Aggravating or associated factors: working,bending over, standing upright Relieving factors: chiro Treatment: stretching,chiro Pain Quality: aching, dull and sharp Exam Musc General: Yes normal posture, normal gait, joint tenderness and decreased range of motion; No muscle weakness Cervical Spine: Yes normal cervical lordosis Thoracic/Lumber: Yes thoracic and lumbar spine normal to inspection, Yes paraspinal tenderness on the left greater than right (thoracolumbar), Yes thoraco-lumbar spasm bilaterally (lumbar para spinal, QL, glute medius) in the lower thoracic, in the upper lumbar, in the mid lumbar and in the lower lumbar and Yes misalignment T5, T6, T7, L3, L4, L5 and LIL Sacroiliac joints: bilaterally tender to palpation Office Procedures Procedures - Chiropractic Procedures Manipulation: Lumbar L3, Thoracic T10 and Pelvis LIL Manipulation: 3-4 regions Electronic Stimulation: Yes Electrical Stimulation: Lumbar 15 mins (26) mA Therapy Performed by:: Mona Solares Traction, Mechanical: Yes Patient Response: positive Assessment and Plan Assessment and Plan (1) Segmental and somatic dysfunction of lumbar region: Status: Acute (2) Segmental and somatic dysfunction of thoracic region: Status: Acute (3) Segmental and somatic dysfunction of pelvic region: Status: Acute Orders: Orders Chiropractic Treatments Today M99.01 - Segmental and somatic dysfunction of cervical region, M99.02 - Segmental and somatic dysfunction of thoracic region, M99.03 - Segmental and somatic dysfunction of lumbar region, M99.04 - Segmental and somatic dysfunction of sacral region, M99.05 - Segmental and somatic dysfunction of pelvic region L/S Spine Min 4 Views Today M99.03 - Segmental and somatic dysfunction of lumbar region, M99.05 - Segmental and somatic dysfunction of pelvic region Plan Patient xrays were obtained which revealed a normal lumbar spine with misalignment. Plan is to correct misalignment and decrease spasm from strain. Continue with acute care plan. Plan Details Goals Barriers: Goals Decrease pain Decrease spasm Improve ROM Follow Up: (more content not included)... Normal [facility] Chiropractic Reporton 2024 Chiropractic Report [facility] [address] [place] [address] OFFICE VISIT Date of Service: 07/25/24 MR#: [id number] Acct: [id number] Name: TAMI FUNG EDWARD Rep #: [id number] : 2005 Provider: BENITO Anne Age/Sex: 19/F Location: [facility] [place] Status: Signed Intake Vital Signs 06/07/24 11:31 07/25/24 09:24 Height 5 ft 9 in 5 ft 9 in Weight: 194 lb 2 oz BMI 28.6 BP 127/84 H Intake Visit Reasons: LBP Chief Complaint: low back pain Is patient in pain?: Yes (low back) Pain scale (1-10): 7 Allergies No Known Allergies Allergy (Verified 07/25/24 15:17) Medications ???Medication ???Instructions ???Recorded ???Confirmed ???Type cholecalciferol (vitamin D3) 1,250 1,250 mcg PO QMONTH 04/21/24 History mcg (50,000 unit) capsule fenofibrate nanocrystallized 145 145 mg PO QDAY 04/21/24 07/25/24 H istory mg tablet sertraline 50 mg tablet 50 mg PO QDAY 04/21/24 07/25/24 Hi story PFSH Medical History Vitamin D deficiency High triglycerides Social anxiety disorder Family History Mother Diabetes Hormone imbalance Grandmother Diabetes Skin cancer Grandfather Diabetes Heart disease Social History adopted: No number of children: 0 current occupational status: employed 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 Pt. advises she is having a flare up of low back pain. 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 She gave her dogs a bath last evening and her low back pain flared again d/t bending over for a length of time. She states her pain is equal across her low back bilaterally and extends into her bilateral hips and glutes. She rates her low back pain 7/10 today. She states prolonged sitting, standing, bending or walking aggravates her low back pain. She treats pain at home with a heating pad and stretches often. Pt. denies numbness or tingling. Belle reports chiropractic adjustments and E-stim are helpful in relieving her pain and discomfort but it gradually returns. Onset: 05/10/09 Location: Neck/Back Duration: frequent Aggravating or associated factors: working,bending over, standing upright Relieving factors: chiro Treatment: stretching,chiro Pain Quality: aching, dull and sharp Exam Musc General: Yes normal posture, normal gait, joint tenderness and decreased range of motion; No muscle weakness Cervical Spine: Yes normal cervical lordosis Thoracic/Lumber: Yes thoracic and lumbar spine normal to inspection, Yes Lasegue's sign negative, Yes straight leg raise negative bilaterally, Yes pain with thoraco-lumbar ROM with forward flexion and other (extension), Yes paraspinal tenderness on the left greater than right (thoracolumbar), Yes thoraco-lumbar spasm bilaterally (lumbar paraspinal, QL, glute medius) in the lower thoracic, in the upper lumbar, in the mid lumbar and in the lower lumbar and Yes misalignment T5, T6, T7, L3, L4, L5 and LIL Sacroiliac joints: bilaterally tender to palpation Office Procedures Procedures - Chiropractic Procedures Manipulation: Lumbar L3, Thoracic T10 and Pelvis LIL Manipulation: 3-4 regions Electronic Stimulation: Yes Electrical Stimulation: Lumbar 15 mins (19) mA Therapy Performed by:: Mona Solares Traction, Mechanical: Yes Patient Response: positive Assessment and Plan Assessment and Plan (1) Segmental and somatic dysfunction of lumbar region: Status: Acute (2) Segmental and somatic dysfunction of thoracic region: Status: Acute (3) Segmental and somatic dysfunction of pelvic region: Status: Acute Orders: Orders Chiropractic Treatments Today M99.01 - Segmental and somatic dysfunction of cervical region, M99.02 - Segmental and somatic dysfunction of thoracic region, M99.03 - Segmental and somatic dysfunction of lumbar region, M99.04 - Segmental and somatic dysfunction of sacral region Plan Patient had a sprain/strain injury which then was exacerbated by poor posture while bathing her dog. She was treated with gentle adjustment and it was well tolerated. Recommend Adriane str (more content not included)... Normal [facility] PAP I-G w/rfx hrHPV-Aptimaon 06-10-2024 ADEQ Comment Normal . [facility] Comment on above: Order Comment: Speci men Comment: [id number] Specimen Comment: No. of containers..01 ThinPrep Vial Result Comment: Sati sfactory for evaluation. Endocervical and/or squamous metaplastic cells (endocervical component) are present. Performed By: #### L 7400.0353 #### [facility] [address] [place], [address] COMM . Normal . [facility] Comment on above: Order Comment: Speci men Comment: [id number] Specimen Comment: No. of containers..01 ThinPrep Vial Performed By: #### L 7400.0353 #### [facility] [address] [place], [place], [id number] COMMENT Comment Normal . [facility] Comment on above: Order Comment: Speci men Comment: [id number] Specimen Comment: No. of containers..01 ThinPrep Vial Result Comment: This liquid based ThinPrep(R) pap test was screened with the use of an image guided system. Performed By: #### L 7400.0353 #### [facility] [address] [place], [place], [id number] DIAG Comment Normal . [facility] Comment on above: Order Comment: Speci men Comment: [id number] Specimen Comment: No. of containers..01 ThinPrep Vial Result Comment: NEGA TIVE FOR INTRAEPITHELIAL LESION OR MALIGNANCY. Performed By: #### L 7400.0353 #### [facility] [address] [place], [place], [id number] HPV RFLX Comment Normal . [facility] Comment on above: Order Comment: Speci men Comment: [id number] Specimen Comment: No. of containers..01 ThinPrep Vial Result Comment: The HPV DNA reflex criteria were not met with this specimen result therefore, no HPV testing was performed. Performed at: - [address] [id number] Contract Forester: Seema Barger MD, Phone: [phone] Performed By: #### L 7400.0353 #### [facility] [address] [place], [place], [address] PAPSMR Comment Normal . [facility] Comment on above: Order Comment: Speci men Comment: [id number] Specimen Comment: No. of containers..01 ThinPrep Vial Result Comment: The Pap smear is a screening test designed to aid in the detection of premalignant and malignant conditions of the uterine cervix. It is not a diagnostic procedure and should not be used as the sole means of detecting cervical cancer. Both false-positive and false-negative reports do occur. Performed By: #### L 7400.0353 #### [facility] [address] [place], [place], [address] PERFORM Comment Normal . [facility] Comment on above: Order Comment: Speci men Comment: [id number] Specimen Comment: No. of containers..01 ThinPrep Vial Result Comment: Shaunna Castillologist (ASCP) Performed By: #### L 7400.0353 #### [facility] [address] [place], [place], [id number] Cervical or vagninal specime n microscopic examination by cytology stain (reported asOrdered By: Marry Davila on 06-07-2024 Cytology report Cyto stain Doc (Cvx/Vag) Comment . [facility] Comment on above: The Pap smear is a s creening test designed to aid in thedetection of premalignant and malignant conditions of theuterine cervix. It is not a diagnostic procedure andshould not be used as the sole means of detecting cervicalcancer. Both false-positive and false-negative reports dooccur. Laboratory - CytologyOrdered By: Marry Davila on 06-07-2024 Shop Steward Cyto stain Nom (Cvx/Vag) [ID] Comment . [facility] Comment on above: Cade Argueta tolmao (ASCP) Laboratory - Miscellaneous t estsOrdered By: Marry Davila on 06-07-2024 Service comment (Unsp spec) [Interp] . . [facility] No Panel InformationOrdered By: Marry Davila on 06-07-2024 Pap Smear Specimen Adequacy Comment . [facility] Comment on above: Satisfactory for yaneth luation. Endocervical and/or squamous metaplasticcells (endocervical component) are present. Supervisor [employer] Office Visit Reporton 06-07-2024 Supervisor [employer] Office Visit Report [facility] [address], [address] [place] [address] OFFICE VISIT Date of Service: 06/07/24 MR#: [id number] Acct: [id number] Name: TAMI FUNG Rep #: [id number] : 2005 Provider: ANURADHA Garnett Age/Sex: 19/F Location: [facility] [place] Status: Signed with Addenda ADDENDUM by ANURADHA Davila on 06/07/24 at 1202 Assessment and Plan Assessment and Plan (1) Irregular menses: Status: Acute Plan: Labwork ordered; consider OCP; Discussed if she is sexually active she should be using a form of protection. Final plan with results of lab work. Orders: Orders PAP I-G w/rfx hrHPV-Aptima Today Z12.4 - Encounter for screening for malignant neoplasm of cervix Thyroid Stim Hormone (TSH) Today N92.6 - Irregular menstruation, unspecified T4 Free Direct Today N92.6 - Irregular menstruation, unspecified Vitamin D,25 Hydroxy Today N92.6 - Irregular menstruation, unspecified Hemoglobin A1c Today N92.6 - Irregular menstruation, unspecified Plan Details Goals Barriers: Goals Decrease pain Decrease spasm Improve ROM 06/07/24 1202 Date Marry Davila cc: * Signed Intake Vital Signs 02/10/23 07:30 06/07/24 11:31 Height 5 ft 9 in 5 ft 9 in Weight: 194 lb 2 oz BMI 28.6 BP 127/84 H 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 Is patient in pain?: No Allergies No Known Allergies Allergy (Verified 06/07/24 11:32) Medications ???Medication ???Instructions ???Recorded ???Confirmed ???Type cholecalciferol (vitamin D3) 1,250 1,250 mcg PO QMONTH 04/21/24 History mcg (50,000 unit) capsule fenofibrate nanocrystallized 145 145 mg PO QDAY 04/21/24 06/07/24 H istory mg tablet sertraline 50 mg tablet 50 mg PO QDAY 04/21/24 06/07/24 Hi story Is last menstrual period known: Yes Last Menstrual Period: 05/12/24 Post menopausal: No Control Method: none PFSH Medical History Vitamin D deficiency High triglycerides Social anxiety disorder Family History Mother Diabetes Hormone imbalance Grandmother Diabetes Skin cancer Grandfather Diabetes Heart disease Social History adopted: No number of children: 0 current occupational status: employed 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 She reports irregular menses; she has a menses about every other month. 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 She is sexually active; no form of control is being used; denies concerns for STD's; okay with a . Last PAP: due History of abnormal PAP: n/a Last mammogram: age 38 History of abnormal mammogram: n/a Colon cancer screening: age 43 Other preventative health care screenings: Vito Gonzalez; PCP. Female Reproductive History Last Menstrual Period: 05/12/24 ROS Const Constitutional: Denies chills, fatigue, fever(s), headache(s) or weight loss Eyes Eyes: Denies change in vision ENT ENT: Denies dizziness Resp Resp: Denies cough GI GI: Denies abdominal pain, constipation or nausea : Denies difficulty voiding, dysuria, hematuria, nipple discharge, pelvic pain, prolapse symptoms, urinary incontinence, vaginal discharge, vaginal dryness, vaginal odor or vaginal pruritus Skin Skin/Breast: Denies alopecia, rash, breast mass, breast pain, breast skin changes or nipple discharge Neuro Neuro: Denies dizziness Psych Psych: Denies anxiety (controlled on medications.) or depression Endo Endo: Denies cold intolerance, excessive sweating or heat intolerance Exam Const General: cooperative, healthy appearing, comfortable, no acute distress, well groomed and well hydrated Nutritional Appearance: well nourished Orientation: alert, awake and oriented x3 HENMT Head: normal to inspection and normocephalic Ears: hearing grossly normal bilaterally and external ears normal Nose: (more content not included)... Normal [facility] Anion gap in Serum or Plasma Ordered By: Vito Panda on 05-24-2024 Anion gap [Moles/Vol] 10 mmol/L 06-23 [facility] BUN/creatinine ratioOrdered By: Vito Panda on 05-24-2024 Urea nitrogen/Creatinine [Mass ratio] 14.8 mg/mg 11-28 [facility] Bilirubin, totalOrdered By: Vito Panda on 05-24-2024 Bilirubin [Mass/Vol] 0.28 mg/dL 0.00-1.30 [facility] Calculated very low density lipoprotein (VLDL) cholesterol measurementOrdered By: Vito Panda on 05-24-2024 Calculated very low density lipoprotein (VLDL) cholesterol measurement 32 mg/dL [facility] VLDL Cholesterol 32 mg/dL [facility] Carbon dioxide, total [Moles /volume] in Central venous bloodOrdered By: Vito Panda on 05-24-2024 CO2 [Moles/Vol] 22.3 mmol/L 21.0-32.0 [facility] Chloride assayOrdered By: Genesis Panda on 05-24-2024 Chloride [Moles/Vol] 107 mmol/L 98-108 [facility] Comprehensive Metabolic Prof ilon 05-24-2024 Albumin [Mass/Vol] 4.3 g/dL Normal 3.5-5.0 [facility] Comment on above: Performed By: #### L 500.7830, L500.4050 #### [facility] Laboratory [facility] [place], [address] Albumin/Globulin [Mass ratio] 1.4 {ratio} Normal 0.9-2.4 [facility] Comment on above: Performed By: #### L 500.4100, L500.4050 #### [facility] [address] [place], [address] ALK PHOS 63 U/L Normal 35-104 [facility] Comment on above: Performed By: #### L 500.4100, L500.4050 #### [facility] [address] [place], [address] ALT [Catalytic activity/Vol] 20 U/L Normal <=34 [facility] Comment on above: Performed By: #### L 500.4100, L500.4050 #### [facility] [address] [place], [address] AST [Catalytic activity/Vol] 23 U/L Normal <=31 [facility] Comment on above: Performed By: #### L 500.4100, L500.4050 #### [facility] [address] [place], [address] Bilirubin [Mass/Vol] 0.28 mg/dL Normal 0.00-1.30 [facility] Comment on above: Performed By: #### L 500.4100, L500.4050 #### [facility] [address] [place], [address] BUN/CRE 14.8 RATIO Normal 10-20 [facility] Comment on above: Performed By: #### L 500.4100, [id number] #### [facility] [address] [place], [address] Calcium [Mass/Vol] 9.7 mg/dL Normal 7.6-11.0 [facility] Comment on above: Performed By: #### L 500.4100, [id number] #### [facility] [address] [place], [address] Chloride [Moles/Vol] 107 mmol/L Normal 98-108 [facility] Comment on above: Performed By: #### L 500.4100, [id number] #### [facility] [address] [place], [address] CO2 [Moles/Vol] 22.3 mmol/L Normal 21.0-32.0 [facility] Comment on above: Performed By: #### L 500.4100, [id number] #### [facility] [address] [place], [address] Creatinine [Mass/Vol] 0.80 mg/dL Normal 0.70-1.20 [facility] Comment on above: Performed By: #### L 500.4100, [id number] #### [facility] [address] [place], [address] GAP 10 Normal 5-15 [facility] Comment on above: Performed By: #### L 500.4100, [id number] #### [facility] [address] [place], [address] GFR/1.73 sq M.predicted among non-blacks MDRD (S/P/Bld) [Vol rate/Area] 107 mL/min/{1.73_m2} Normal >60 [facility] Comment on above: Result Comment: mL/m in/1.73m2 CKD-EPI Creatinine Equation (2020) Performed By: #### L 500.4100, L500.4050 #### [facility] [address] [place], [address] Globulin (S) [Mass/Vol] 3.0 g/dL Normal 2.2-4.2 [facility] Comment on above: Performed By: #### L 500.4100, [id number] #### [facility] [address] [place], [address] Glucose [Mass/Vol] 107 mg/dL High 70-99 [facility] Comment on above: Performed By: #### L 500.4100, [id number] #### [facility] [address] [place], [address] Potassium [Moles/Vol] 4.1 mmol/L Normal 3.3-5.1 [facility] Comment on above: Performed By: #### L 500.4100, [id number] #### [facility] [address] [place], [address] Sodium [Moles/Vol] 139 mmol/L Normal 133-145 [facility] Comment on above: Performed By: #### L 500.4100, [id number] #### [facility] [address] [place], [address] T PROT 7.3 g/dL Normal 5.9-8.4 [facility] Comment on above: Performed By: #### L 500.4100, [id number] #### [facility] [address] [place], [address] Urea nitrogen [Mass/Vol] 12 mg/dL Normal 4-19 [facility] Comment on above: Performed By: #### L 500.4100, [id number] #### [facility] [address] [place], [address] GFR/1.73 sq M.predicted matheus g non-blacks MDRD (S/P/Bld) [Vol rate/Area]Ordered By: Vito Panda on 05-24-2024 Estimated GFR (MDRD) Non-Af Amer 107 >60 [facility] Comment on above: mL/min/1.73m2 CKD-EP I Creatinine Equation (2020) Glomerular filtration rate ( GFR) estimation/1.73 sq m using serum, plasma, or whole bOrdered By: Vito Panda on 05-24-2024 GFR/1.73 sq M.predicted among non-blacks MDRD (S/P/Bld) [Vol rate/Area] 107 mL/min/{1.73_m2} >60 [facility] Comment on above: mL/min/1.73m2 CKD-EP I Creatinine Equation (2020) LDL calc ser/plasOrdered By: Vito Panda on 05-24-2024 Cholesterol in LDL [Mass/Vol] 140 mg/dL [facility] Comment on above: Atuojwivoe=107-142 m g/dL & Higher Psyo=595 mg/dL or greater LDL Cholesterol, Calculated 140 mg/dL [facility] Comment on above: Qtmvsgblnz=783-878 m g/dL & Higher Gkhu=138 mg/dL or greater Laboratory - Chemistry and C hemistry - challengeOrdered By: Vito Panda on 05-24-2024 AST [Catalytic activity/Vol] 23 U/L <32 [facility] Lipid Profileon 05-24-2024 CHOL:HDL 9.23 Normal [facility] Comment on above: Performed By: #### L 500.4100, L500.4050 #### [facility] [address] [place], [place], [id number]) Cholesterol [Mass/Vol] 193 mg/dL High <=190 [facility] Comment on above: Result Comment: Chol esterol level, Desirable <200 mg/dL Borderline high cholesterol 200-239 mg/dL High cholesterol >=240 mg/dL Recommendations of the NCEP Adult Treatment Panel for the following risk-cutoff thresholds for the [place] population. Performed By: #### L 500.4100, L500.4050 #### [facility] [address] [place], [address] Cholesterol in HDL [Mass/Vol] 21 mg/dL Low [facility] Comment on above: Result Comment: Kayla onal Cholesterol Education Program (NCEP) guidelines: <40 mg/dL: Low HDL-cholesterol (major risk factor for CHD) >= 60 mg/dL: High HDL-cholesterol (negative risk factor for CHD) HDL-cholesterol is affected by a number of factors, e.g. smoking, exercise, hormones, sex and age. Performed By: #### L 500.4100, L500.4050 #### [facility] [address] [place], [address] Cholesterol in LDL [Mass/Vol] 140 mg/dL Normal [facility] Comment on above: Result Comment: Bord fyhiae=431-980 mg/dL Higher Eczi=067 mg/dL or greater Performed By: #### L 500.4100, L500.4050 #### [facility] [address] [place], [address] Cholesterol in VLDL [Mass/Vol] 32 mg/dL Normal 5-40 [facility] Comment on above: Performed By: #### L 500.4100, L500.4050 #### [facility] [address] [place], [address] Triglyceride [Mass/Vol] 162 mg/dL Normal [facility] Comment on above: Result Comment: The drugs N-Acetylcysteine and Metamizole may falsely depress this assay. Normal range: <150 mg/dL Borderline High: 150-199 mg/dL High: 200-499 mg/dL Very High: >500 mg/dL Performed By: #### L 500.4100, [id number] #### [facility] [address] [place], [address] Potassium (Unsp spec) [Mass/ Vol]Ordered By: Vito Panda on 05-24-2024 Potassium [Moles/Vol] 4.1 mmol/L 3.3-5.1 [facility] Potassium measurement (mass/ volume)Ordered By: Vito Panda on 05-24-2024 Potassium (Unsp spec) [Mass/Vol] 4.1 mmol/L 3.3-5.1 [facility] Screening total cholesterol/ high density lipoprotein (HDL) cholesterol ratioOrdered By: Vito Panda on 05-24-2024 Cholesterol.total/Manisha sterol in HDL [Mass ratio] 9.23 {ratio} [facility] Serum creatinine measurement (mass/volume)Ordered By: Vito Panda on 05-24-2024 Creatinine [Mass/Vol] 0.80 mg/dL 0.70-1.20 [facility] Serum globulin measurementOr dered By: Vito Panda on 05-24-2024 Globulin (S) [Mass/Vol] 3.0 g/dL 2.2-4.2 [facility] Serum glucose measurement (m ass/volume)Ordered By: Vito Panda on 05-24-2024 Glucose [Mass/Vol] 107 mg/dL High 70-99 [facility] Serum or plasma alanine caro otransferase (ALT) measurementOrdered By: Vito Panda on 05-24-2024 ALT [Catalytic activity/Vol] 20 U/L <35 [facility] Serum or plasma albumin zhen urement (mass/volume)Ordered By: Vito Panda on 05-24-2024 Albumin [Mass/Vol] 4.3 g/dL 3.5-5.0 [facility] Serum or plasma albumin/glob ulin mass ratioOrdered By: Vito Panda on 05-24-2024 Albumin/Globulin [Mass ratio] 1.4 {ratio} 0.9-2.4 [facility] Serum or plasma alkaline eileen sphatase measurementOrdered By: Vito Panda on 05-24-2024 ALP [Catalytic activity/Vol] 63 U/L 35-104 [facility] Serum or plasma calcium zhen urement (mass/volume)Ordered By: Vito Panda on 05-24-2024 Calcium [Mass/Vol] 9.7 mg/dL 7.6-11.0 [facility] Serum or plasma cholesterol in HDL measurement (mass/volume)Ordered By: Vito Panda on 05-24-2024 Cholesterol in HDL [Mass/Vol] 21 mg/dL Low >40 [facility] Comment on above: National Cholesterol Education Program (NCEP) guidelines:<40 mg/dL: Low HDL-cholesterol (major risk factor for CHD)>= 60 mg/dL: High HDL-cholesterol (negative risk factor for CHD)HDL-cholesterol is affected by a number of factors, e.g. smoking, exercise, hormones, sex and age. Serum or plasma cholesterol measurement (mass/volume)Ordered By: Vito Panda on 05-24-2024 Cholesterol [Mass/Vol] 193 mg/dL High <191 [facility] Comment on above: Cholesterol level, D esirable <200 mg/dLBorderline high cholesterol 200-239 mg/dLHigh cholesterol >=240 mg/dLRecommendations of the NCEP Adult Treatment Panel for the following risk-cutoff thresholds for the [place] population. Serum or plasma urea nitroge n measurement (mass/volume)Ordered By: Vito Panda on 05-24-2024 Urea nitrogen [Mass/Vol] 12 mg/dL 4-19 [facility] Sodium levelOrdered By: Mingo Panda on 05-24-2024 Sodium [Moles/Vol] 139 mmol/L 133-145 [facility] Total proteinOrdered By: Xavier Panda on 05-24-2024 Protein [Mass/Vol] 7.3 g/dL 5.9-8.4 [facility] Triglycerides measurementOrd ered By: Vito Panda on 05-24-2024 Triglyceride [Mass/Vol] 162 mg/dL <199 [facility] Comment on above: The drugs N-Acetylcy steine and Metamizole may falsely depress this assay. Normal range: <150 mg/dLBorderline High: 150-199 mg/dLHigh: 200-499 mg/dLVery High: >500 mg/dL 42-IH-Gnttxty DOrdered By: Dayna Panda on 02-18-2024 Vitamin D 25-Hydroxy 34.1 ng/mL [facility] Comment on above: Vitamin D 25(OH) Sta tus Range Deficiency <20 ng/mL (50nmol/L) Insufficiency 20 - 30 ng/mL (50 - 75 nmol/L) Sufficiency 30 - 100 ng/mL (75 - 250 nmol/L) Toxicity >100 ng/mL (>250 nmol/L) Albumin to globulin ratioOrd ered By: Vito Panda on 02-18-2024 Albumin/Globulin [Mass ratio] 0.9 {ratio} 0.9-2.4 [facility] Bilirubin, totalOrdered By: Vito Panda on 02-18-2024 Bilirubin [Mass/Vol] 0.30 mg/dL 0.20-1.00 [facility] Comment on above: For patients on eltr ombopag therapy, use of Dimension Agate TBIL is not recommended. Blood urea nitrogen (BUN)/cr eatinine ratioOrdered By: Vito Panda on 02-18-2024 Urea nitrogen/Creatinine [Mass ratio] 13.6 mg/mg 10-20 [facility] Carbon dioxide measurementOr dered By: Vito Panda on 02-18-2024 CO2 [Moles/Vol] 25.0 mmol/L 21.0-32.0 [facility] Chloride measurementOrdered By: Vito Panda on 02-18-2024 Chloride [Moles/Vol] 107 mmol/L 98-107 [facility] Comprehensive Metabolic Prof ilon 02-18-2024 Albumin [Mass/Vol] 3.7 g/dL Normal 3.2-5.0 [facility] Comment on above: Performed By: #### L 506.1000, L500.4050, L500.4100 #### [facility] [address] [place], [address] Albumin/Globulin [Mass ratio] 0.9 {ratio} Normal 0.9-2.4 [facility] Comment on above: Performed By: #### L 506.1000, L500.4050, L500.4100 #### [facility] [address] [place], [address] ALK P 101 U/L Normal 45-117 [facility] Comment on above: Performed By: #### L 506.1000, L500.4050, L500.4100 #### [facility] [address] [place], [address] ALT [Catalytic activity/Vol] 31 U/L Normal 13-56 [facility] Comment on above: Performed By: #### L 506.1000, L500.4050, L500.4100 #### [facility] [address] [place], [address] AST [Catalytic activity/Vol] 17 U/L Normal 15-37 [facility] Comment on above: Performed By: #### L 506.1000, L500.4050, L500.4100 #### [facility] [address] [place], [address] Bilirubin [Mass/Vol] 0.30 mg/dL Normal 0.20-1.00 [facility] Comment on above: Result Comment: For patients on eltrombopag therapy, use of Dimension Agate TBIL is not recommended. Performed By: #### L 506.1000, L500.4050, L500.4100 #### [facility] [address] [place], [address] BUN/CRE 13.6 RATIO Normal 10-20 [facility] Comment on above: Performed By: #### L 506.1000, L500.4050, L500.4100 #### [facility] [address] [place], [address] CA,Total 9.5 mg/dL Normal 8.5-10.1 [facility] Comment on above: Performed By: #### L 506.1000, L500.4050, L500.4100 #### [facility] [address] [place], [address] Chloride [Moles/Vol] 107 mmol/L Normal 98-107 [facility] Comment on above: Performed By: #### L 506.1000, L500.4050, L500.4100 #### [facility] [address] [place], [address] CO2 [Moles/Vol] 25.0 mmol/L Normal 21.0-32.0 [facility] Comment on above: Performed By: #### L 506.1000, L500.4050, L500.4100 #### [facility] [address] [place], [address] Creatinine [Mass/Vol] 0.74 mg/dL Normal 0.55-1.02 [facility] Comment on above: Result Comment: The validity of the calculated GFR GFRAA in patients over 70 years has not been determined. Clinical correlation is essential. Performed By: #### L 506.1000, L500.4050, L500.4100 #### [facility] [address] [place], [address] EST GFR - AA 128 mL/min Normal >60 [facility] Comment on above: Result Comment: Afri can [place] GFR Calc Performed By: #### L 506.1000, L500.4050, L500.4100 #### [facility] [address] [place], [address] GAP 5 Normal 5-15 [facility] Comment on above: Performed By: #### L 506.1000, L500.4050, L500.4100 #### [facility] [address] [place], [address] GFR/1.73 sq M.predicted among non-blacks MDRD (S/P/Bld) [Vol rate/Area] 106 mL/min/{1.73_m2} Normal >60 [facility] Comment on above: Result Comment: Non- GFR Calc Performed By: #### L 506.1000, L500.4050, L500.4100 #### [facility] [address] [place], [address] Globulin (S) [Mass/Vol] 4.1 g/dL Normal 2.2-4.2 [facility] Comment on above: Performed By: #### L 506.1000, L500.4050, L500.4100 #### [facility] [address] [place], [address] Glucose [Mass/Vol] 128 mg/dL High 74-106 [facility] Comment on above: Result Comment: Fast ing Glucose result greater than or equal to 126 mg/dL suggests DIABETES MELLITUS per A.D.A. criteria. Performed By: #### L 506.1000, L500.4050, L500.4100 #### [facility] [address] [place], [address] Potassium [Moles/Vol] 4.1 mmol/L Normal 3.5-5.1 [facility] Comment on above: Performed By: #### L 506.1000, L500.4050, L500.4100 #### [facility] [address] [place], [address] Sodium [Moles/Vol] 137 mmol/L Normal 136-145 [facility] Comment on above: Performed By: #### L 506.1000, L500.4050, L500.4100 #### [facility] [address] [place], [address] T PROT 7.8 g/dL Normal 6.4-8.2 [facility] Comment on above: Performed By: #### L 506.1000, L500.4050, L500.4100 #### [facility] [address] [place], [address] Urea nitrogen [Mass/Vol] 10 mg/dL Normal 7-18 [facility] Comment on above: Performed By: #### L 506.1000, L500.4050, L500.4100 #### [facility] [address] [place], [address] Estimated glomerular filtrat ion rate (GFR) AmericanOrdered By: Vito Panda on 02-18-2024 Estimated GFR (MDRD) Amer 128 mL/min >60 [facility] Comment on above: GFR Calc Glomerular filtration rate ( GFR) estimationOrdered By: Vito Panda on 02-18-2024 Estimated GFR (MDRD) Non-Af Amer 106 mL/min >60 [facility] Comment on above: Non- GFR Calc Glucose measurementOrdered B y: Vito Panda on 02-18-2024 Glucose [Mass/Vol] 128 mg/dL High 74-106 [facility] Comment on above: Fasting Glucose resu lt greater than or equal to 126 mg/dL suggests DIABETES MELLITUS per A.D.A. criteria. High density lipoprotein (HD L) measurementOrdered By: Vito Panda on 02-18-2024 Cholesterol in HDL [Mass/Vol] 20 mg/dL Low >40 [facility] Comment on above: The drugs N-Acetylcy steine and Metamizole may falsely depress this assay. Reference Range HDL <40 mg/dL Low HDL Cholesterol HDL >or= 60 mg/dL High HDL Cholesterol Laboratory - Chemistry and C hemistry - challengeOrdered By: Vito Panda on 02-18-2024 AST [Catalytic activity/Vol] 17 U/L 15-37 [facility] Lipid Profileon 02-18-2024 Cholesterol [Mass/Vol] 176 mg/dL Normal 200 [facility] Comment on above: Result Comment: <200 mg/dL Desirable 200-240 mg/dL Borderline >240 mg/dL High Risk Performed By: #### L 506.1000, L500.4050, L500.4100 #### [facility] [address] [place], [address] Cholesterol in HDL [Mass/Vol] 20 mg/dL Low [facility] Comment on above: Result Comment: The drugs N-Acetylcysteine and Metamizole may falsely depress this assay. Reference Range HDL <40 mg/dL Low HDL Cholesterol HDL >or= 60 mg/dL High HDL Cholesterol Performed By: #### L 506.1000, L500.4050, L500.4100 #### [facility] [address] [place], [address] Cholesterol in LDL [Mass/Vol] 83 mg/dL Normal 0-130 [facility] Comment on above: Performed By: #### L 506.1000, L500.4050, L500.4100 #### [facility] [address] [place], [address] Cholesterol in VLDL [Mass/Vol] 73 mg/dL High 5-40 [facility] Comment on above: Performed By: #### L 506.1000, L500.4050, L500.4100 #### [facility] [address] [place], [address] Triglyceride [Mass/Vol] 366 mg/dL High [facility] Comment on above: Result Comment: The drugs N-Acetylcysteine and Metamizole may falsely depress this assay. Serum Triglycerides Reference Interval Normal <150 mg/dL Borderline high 150 - 199 mg/dL High 200 - 499 mg/dL Very High > or = 500 mg/dL Performed By: #### L 506.1000, L500.4050, L500.4100 #### [facility] [address] [place], [address] Low density lipoprotein (LDL ) cholesterol measurementOrdered By: Vito Panda on 02-18-2024 Cholesterol in LDL [Mass/Vol] 83 mg/dL 0-130 [facility] Potassium measurementOrdered By: Vito Panda on 02-18-2024 Potassium [Moles/Vol] 4.1 mmol/L 3.5-5.1 [facility] Serum anion gap measurementO rdered By: Vito Panda on 02-18-2024 Anion gap [Moles/Vol] 5 mmol/L 5-15 [facility] Serum globulin measurementOr dered By: Vito Panda on 02-18-2024 Globulin (S) [Mass/Vol] 4.1 g/dL 2.2-4.2 [facility] Serum or plasma alanine caro otransferase (ALT) measurementOrdered By: Vito Panda on 02-18-2024 ALT [Catalytic activity/Vol] 31 U/L 13-56 [facility] Serum or plasma albumin zhen urement (mass/volume)Ordered By: Vito Panda on 02-18-2024 Albumin [Mass/Vol] 3.7 g/dL 3.2-5.0 [facility] Serum or plasma alkaline eileen sphatase measurementOrdered By: Vito Panda on 02-18-2024 ALP [Catalytic activity/Vol] 101 U/L 45-117 [facility] Serum or plasma calcium zhen urement (mass/volume)Ordered By: Vito Panda on 02-18-2024 Calcium [Mass/Vol] 9.5 mg/dL 8.5-10.1 [facility] Serum or plasma cholesterol measurement (mass/volume)Ordered By: Vito Panda on 02-18-2024 Cholesterol [Mass/Vol] 176 mg/dL <200 [facility] Comment on above: <200 mg/dL Desirable 200-240 mg/dL Borderline >240 mg/dL High Risk Serum or plasma creatinine m easurement (mass/volume)Ordered By: Vito Panda on 02-18-2024 Creatinine [Mass/Vol] 0.74 mg/dL 0.55-1.02 [facility] Comment on above: The validity of the calculated GFR & GFRAA in patients over 70 years has not been determined. Clinical correlation is essential. Serum or plasma urea nitroge n measurement (mass/volume)Ordered By: Vito Panda on 02-18-2024 Urea nitrogen [Mass/Vol] 10 mg/dL 7-18 [facility] Sodium levelOrdered By: Mingo Panda on 02-18-2024 Sodium [Moles/Vol] 137 mmol/L 136-145 [facility] Total proteinOrdered By: Xavier Panda on 02-18-2024 Protein [Mass/Vol] 7.8 g/dL 6.4-8.2 [facility] Triglycerides measurementOrd ered By: Vito Panda on 02-18-2024 Triglyceride [Mass/Vol] 366 mg/dL High <199 [facility] Comment on above: The drugs N-Acetylcy steine and Metamizole may falsely depress this assay.Serum Triglycerides Reference Interval Normal <150 mg/dL Borderline high 150 - 199 mg/dL High 200 - 499 mg/dL Very High > or = 500 mg/dL Very low density lipoprotein (VLDL) cholesterol measurementOrdered By: Vito Panda on 02-18-2024 VLDL Cholesterol 73 mg/dL High 5-40 [facility] Vitamin D,25 Hydroxyon 02-17 Vitamin D 25-OH 34.1 ng/mL Normal [facility] Comment on above: Result Comment: Thelma min D 25(OH) Status Range Deficiency <20 ng/mL (50nmol/L) Insufficiency 20 - 30 ng/mL (50 - 75 nmol/L) Sufficiency 30 - 100 ng/mL (75 - 250 nmol/L) Toxicity >100 ng/mL (>250 nmol/L) Performed By: #### L 506.1000, L500.4050, L500.4100 #### [facility] [address] [place], [address] Urgent Care Visit Reporton 1 02-22-2023 Urgent Care Visit Report [facility] [address], [address] [place] [address] OFFICE VISIT Date of Service: 12/24/23 MR#: [id number] Acct: [id number] Name: TAMI FUNG EDWARD Rep #: [id number] : 2005 Provider: GRISEL Lima Age/Sex: 18/F Location: [facility] Status: Signed Intake Vital Signs 02/10/23 07:30 12/24/23 07:00 Height 5 ft 9 in BP 104/66 Blood Pressure Location Lt brachial Position Sitting Respiration 14 Pulse 72 Pulse Source NIBP Temp 99.3 F H Temp Source Oral Pulse Oximetry (%) 100 Oxygen Delivery Method room air Intake Visit Reasons: SORE THROAT Chief Complaint: ST, BA, nausea Sales Order Specialist Required: No Is patient in pain?: Yes Allergies No Known Allergies Allergy (Verified 12/24/23 07:02) Is last menstrual period known: No Post menopausal: No Patient : No Have you fallen in the past year?: No Nurse's Note: ST, BA x 24 hours. denies BECKER, cough, congestion. concern for strep PFSH Medical History Social anxiety disorder Social History Smoking Status: Never smoker alcohol intake: never HPI HPI Chief Complaint: ST, BA, nausea Details: TAMI FUNG is a 18 F who presents to the office today for complaint of sore throat and bodyaches starting today. Patient denies fever, chills, sweats. No nausea, vomiting or diarrhea. No loss of taste or smell. No other associated symptoms or alleviating/aggravati ng factors. ROS Const Constitutional: No other (As above) Exam Const General: cooperative and healthy appearing [facility] Head: normal to inspection Ears: hearing grossly normal bilaterally, TM's normal bilaterally and EAC's normal Nose: external nose normal and nasal discharge clear Mouth: oral mucosae normal Throat: abnormal tonsil bilaterally Resp Effort Inspection: normal respiratory effort Auscultation: Bilateral: Clear to Auscultation Cardio Rate: regular rate Rhythm: regular rhythm Neuro General: patient alert Psych Appearance: grossly normal Mental Status: mental status grossly normal Results POC Keri Rapid Strep POC Keri Rapid Strep Negative Last Edit by Vani Godwin on 12/24/23 07:16 Coding Level of Care Code Off vis,est,level 3 Diagnoses Acute pharyngitis J02.9 Assessment and Plan Assessment and Plan (1) Acute pharyngitis: Status: Acute Orders: Orders POC Keri Rapid Strep A Today Medications: New benzocaine-menthol 15-10 mg (Chloraseptic Max) 1 shana mucous membrane .4 times daily PRN 15 ea 0RF sore throat Plan Strep test negative in the office today. Encouraged to get plenty of rest, drink lots of clear liquids, and use Tylenol or Ibuprofen (unless contraindicated) for fever and comfort. Patient also educated on other symptomatic management techniques. To be seen in 7-10 days if no improvement; sooner if worsening of symptoms. Patient advised of potential red flags and when appropriate to report to the ED. Patient verbalized understanding and agreement with all the above. Plan Details Goals Barriers: Goals Decrease pain Decrease spasm Improve ROM Clinical Quality Measures Falls Risk Screening/Assistive Devices Have you fallen in the past year?: No 12/24/23 0725 Date John Velásquez Signature: Date (if applicable) CC: Normal [facility] Chiropractic Reporton 2023 Chiropractic Report [facility] [address] [place] [address] OFFICE VISIT Date of Service: 11/23/23 MR#: [id number] Acct: [id number] Name: TAMI FUNG Rep #: [id number] : 2005 Provider: BENITO Anne Age/Sex: 18/F Location: [facility] Status: Signed Intake Vital Signs 02/10/23 07:30 Height 5 ft 9 in Intake Visit Reasons: LBP Chief Complaint: right mid, Low back pain Is patient in pain?: Yes (right mid back ) Pain scale (1-10): 4 Allergies No Known Allergies Allergy (Verified 11/23/23 11:37) Medications ???Medication ???Instructions ???Recorded ???Confirmed ???Type levonorgestrel-ethiny l estradiol 1 tab PO DAILY 01/16/22 11/23/23 History 0.1 mg-20 mcg tablet (Vienva) sertraline 25 mg tablet 25 mg PO DAILY #30 tabs 01/16/22 11/23/23 Rx PFSH Medical History Social anxiety disorder Social History Smoking Status: Never smoker alcohol intake: never HPI LBP Chief Complaint: Low back pain Visit Number: 4 Details: Belle is a 18 year old female here to f/u on low back pain. Pt. advises she has been experiencing pain on the right side of her thoracic spine for about a month and a half, insidious onset. She denies injury and rates her pain 4/10 today. She states the only thing she can think of that may have caused it was mopping her floors. She states her low back is often tight and achy. She states her thoracic pain is aggravated with twisting. Prolonged sitting, standing or walking aggravates her low back discomfort. She treats pain at home with a heating pad and stretches often. Pt. denies numbness, tingling or radiculopathy. Belle reports chiropractic adjustments and E-stim are helpful in relieving her pain and discomfort. Onset: 05/10/09 Location: Neck/Back Duration: frequent Aggravating or associated factors: working Relieving factors: chiro Treatment: stretching,chiro Pain Quality: aching, dull and sharp Exam Musc General: Yes normal posture, normal gait, joint tenderness and decreased range of motion; No muscle weakness Cervical Spine: Yes normal cervical lordosis, Yes cervical muscular tenderness bilateral lower , Yes cervical spasm bilateral diffuse trapezius and paracervical muscles and Yes misalignment misalignment: C5 and C6 Thoracic/Lumber: Yes thoracic and lumbar spine normal to inspection, Yes paraspinal tenderness bilaterally in the upper thoracic and in the mid thoracic and on the right greater than left (lumbopelvic), Yes thoraco-lumbar spasm bilaterally (lumbar paraspinal, right glutes, trap) in the upper thoracic, in the mid thoracic and in the lower lumbar and Yes misalignment T1, T5, T6, T7, L3, L4 and L5 Office Procedures Procedures - Chiropractic Procedures Manipulation: Cervical C6, Lumbar L5 and Thoracic T2 and T5 Manipulation: 3-4 regions Electronic Stimulation: Yes Electrical Stimulation: Lumbar 15 mins (17) mA and Thoracic 15 mins (17) mA Therapy Performed by:: Mona Solares Traction, Mechanical: Yes Patient Response: positive Assessment and Plan Assessment and Plan (1) Segmental and somatic dysfunction of lumbar region: Status: Acute (2) Segmental and somatic dysfunction of thoracic region: Status: Acute (3) Segmental and somatic dysfunction of cervical region: Status: Acute Orders: Orders Chiropractic Treatments Today M99.01 - Segmental and somatic dysfunction of cervical region, M99.02 - Segmental and somatic dysfunction of thoracic region, M99.03 - Segmental and somatic dysfunction of lumbar region, M99.04 - Segmental and somatic dysfunction of sacral region Plan Patient was treated without incident. Continue care should pain persist. Plan Details Goals Barriers: Goals Decrease pain Decrease spasm Improve ROM Follow Up: PRN Coding Level of Care Code No Charge Diagnoses Segmental and somatic dysfunction of lumbar region M99.03 Segmental and somatic dysfunction of thoracic region M99.02 Segmental and somatic dysfunction of cervical region M99.01 CPT Codes Procedures - Manipulation: 3-4 regions (34388) Procedures - Electronic Stimulation: Yes (04161) Procedures - Traction, Mechanical: Yes (99116) 11/23/23 1329 Date Kristy Velásquez Signature: Date (if applicable) CC: Normal [facility] Basophil percentageOrdered B y: Vito Panda on 02-10-2023 Bilirubin [Mass/Vol] 0.40 mg/dL 0.20-1.00 [facility] Comment on above: For patients on eltr ombopag therapy, use of Dimension Agate TBIL is not recommended. Chloride [Moles/Vol] 107 mmol/L 98-107 [facility] Glucose [Mass/Vol] 96 mg/dL 74-106 [facility] Potassium [Moles/Vol] 4.1 mmol/L 3.5-5.1 [facility] Protein [Mass/Vol] 8.0 g/dL 6.4-8.2 [facility] Sodium [Moles/Vol] 139 mmol/L 136-145 [facility] WBC (Bld) [#/Vol] 9.3 10*3/uL 4.4-11.0 [facility] Blood erythrocytes count (nu mber/volume)Ordered By: Vito Panda on 02-10-2023 RBC (Bld) [#/Vol] 4.99 10*6/uL 4.2-5.4 [facility] Blood hemoglobin measurement (mass/volume)Ordered By: Vito Panda on 02-10-2023 Hemoglobin (Bld) [Mass/Vol] 13.8 g/dL 12.0-15.0 [facility] Blood platelet mean volumeOr dered By: Vito Panda on 02-10-2023 Platelet mean volume (Bld) [Entitic vol] 10.5 fL 6.2-12.0 [facility] Determination of erythrocyte mean corpuscular volume (MCV)Ordered By: Vito Panda on 02-10-2023 MCV (RBC) [Entitic vol] 88.2 fL 81-99 [facility] Hematocrit Auto (Bld) [Volum e fraction]Ordered By: Vito Panda on 02-10-2023 Hematocrit (Bld) [Volume fraction] 44.0 % 37-47 [facility] Laboratory - Chemistry and C hemistry - challengeOrdered By: Vito Panda on 02-10-2023 ALP [Catalytic activity/Vol] 116 U/L 45-117 [facility] ALT [Catalytic activity/Vol] 25 U/L 13-56 [facility] CO2 [Moles/Vol] 26.0 mmol/L 21.0-32.0 [facility] Globulin (S) [Mass/Vol] 4.1 g/dL 2.2-4.2 [facility] Urea nitrogen/Creatinine [Mass ratio] 14.6 mg/mg 10-20 [facility] - Hematology and Cell countsOrdered By: Vito Panda on 02-10-2023 Erythrocyte distribution width (RBC) [Entitic vol] 41.8 fL 35.1-43.9 [facility] Erythrocyte distribution width (RBC) [Ratio] 13.0 % 11.6-14.6 [facility] MCH (RBC) [Entitic mass] 27.7 pg 27.0-32.0 [facility] MCHC Auto (RBC) [Mass/Vol]Or dered By: Vito Panda on 02-10-2023 MCHC (RBC) [Mass/Vol] 31.4 g/dL 32-36 [facility] No Panel InformationOrdered By: Vito Panda on 02-10-2023 Estimated GFR (MDRD) Amer 126 mL/min >60 [facility] Comment on above: GFR Calc Estimated GFR (MDRD) Non-Af Amer 104 mL/min >60 [facility] Comment on above: Non- GFR Calc Thyroid Stimulating Hormone (TSH) 1.69 uIU/mL 0.358-3.74 [facility] Vitamin D 25-Hydroxy 26.2 ng/mL [facility] Comment on above: Vitamin D 25(OH) Sta tus Range Deficiency <20 ng/mL (50nmol/L) Insufficiency 20 - 30 ng/mL (50 - 75 nmol/L) Sufficiency 30 - 100 ng/mL (75 - 250 nmol/L) Toxicity >100 ng/mL (>250 nmol/L) Platelets bldOrdered By: Xavier Panda on 02-10-2023 Platelets (Bld) [#/Vol] 239 10*3/uL 150-450 [facility] Serum or plasma albumin zhen urement (mass/volume)Ordered By: Vito Panda on 02-10-2023 Albumin [Mass/Vol] 3.9 g/dL 3.2-5.0 [facility] Serum or plasma albumin/glob ulin mass ratioOrdered By: Vito Panda on 02-10-2023 Albumin/Globulin [Mass ratio] 1.0 {ratio} 0.9-2.4 [facility] Serum or plasma calcium zhen urement (mass/volume)Ordered By: Vito Panda on 02-10-2023 Calcium [Mass/Vol] 9.6 mg/dL 8.5-10.1 [facility] Serum or plasma creatinine m easurement (mass/volume)Ordered By: Vito Panda on 02-10-2023 Creatinine [Mass/Vol] 0.76 mg/dL 0.55-1.02 [facility] Comment on above: The validity of the calculated GFR & GFRAA in patients over 70 years has not been determined. Clinical correlation is essential. Serum or plasma urea nitroge n measurement (mass/volume)Ordered By: Vito Panda on 02-10-2023 Urea nitrogen [Mass/Vol] 11 mg/dL 7-18 [facility] Thin prep Papanicolaou smear with manual screeningOrdered By: Vito Panda on 02-10-2023 Thin prep Papanicolaou smear with manual screening 17 U/L 15-37 [facility] Thin prep Papanicolaou smear with manual screening 6 5-15 [facility] Vital Signs Date Time Vital Sign Value Performing Clinician Faci lity 10-06-2024 08:24-0400 Body height 175.26 cm Vito LUXC Work Phone: [facility] 10-06-2024 08:24-0400 Body mass index (BMI) [Ratio] 26.9 kg/m2 Vito LUXC Work Phone: [facility] 10-06-2024 08:24-0400 Body weight 82.61 kg Vito LUXC Work Phone: [facility] 10-06-2024 08:24-0400 Diastolic blood pressure 84 mm[Hg] Vito Panda [employer] Work Phone: [facility] 10-06-2024 08:24-0400 Systolic blood pressure 125 mm[Hg] Vito Panda [employer] Work Phone: [facility] 08-16-2024 07:48-0400 Body temperature 98.3 [degF] Vito Panda [employer] Work Phone: [facility] 08-16-2024 07:48-0400 Diastolic blood pressure 60 mm[Hg] Vito Panda [employer] Work Phone: [facility] 08-16-2024 07:48-0400 Heart rate 63 /min Vito Panda [employer] Work Phone: [facility] 08-16-2024 07:48-0400 Respiratory rate 16 /min Vito Panda [employer] Work Phone: [facility] 08-16-2024 07:48-0400 SaO2% (BldA) [Mass fraction] 63 % Vito Panda [employer] Work Phone: [facility] 08-16-2024 07:48-0400 Systolic blood pressure 100 mm[Hg] Vito Panda [employer] Work Phone: [facility] 07-28-2024 10:34-0400 Body height 175.26 cm Vito Panda [employer] Work Phone: [facility] 07-25-2024 09:24-0400 Body height 175.26 cm Vito Panda [employer] Work Phone: [facility] 06-07-2024 11:31-0400 Body mass index (BMI) [Ratio] 28.6 kg/m2 Vito Panda [employer] Work Phone: [facility] 06-07-2024 11:31-0400 Body weight 88.05 kg Vito Panda [employer] Work Phone: [facility] 06-07-2024 11:31-0400 Diastolic blood pressure 84 mm[Hg] Vito Panda [employer] Work Phone: [facility] 06-07-2024 11:31-0400 Systolic blood pressure 127 mm[Hg] Vito Panda [employer] Work Phone: [facility] 02-10-2023 07:30-0500 Body height 175.26 cm [employer] Vito Panda [employer] Work Phone: [facility] 02-10-2023 07:30-0500 Body weight 84.45 kg [employer] Vito Panda [employer] Work Phone: [facility] 01-15-2023 07:30-0500 Body weight 85.09 kg [employer] Vito Panda [employer] Work Phone: [facility] 12-30-2022 07:30-0500 Body height 175.26 cm [employer] Vito Panda [employer] Work Phone: [facility] 12-30-2022 07:30-0500 Body weight 83.73 kg [employer] Vito Panda [employer] Work Phone: [facility] 12-10-2022 00:13-0400 Body weight 83.55 kg [employer] Vito Panda [employer] Work Phone: [facility] 11-20-2022 08:00-0400 Body height 175.26 cm [employer] Vito Panda [employer] Work Phone: [facility] 11-20-2022 08:00-0400 Body weight 83.55 kg [employer] Vito Panda [employer] Work Phone: [facility] 11-05-2022 12:00-0400 Body height 175.26 cm [employer] Vito Panda [employer] Work Phone: [facility] 11-05-2022 12:00-0400 Body weight 84.18 kg [employer] Vito Panda [employer] Work Phone: [facility] 10-07-2022 08:00-0400 Body height 175.26 cm [employer] Vito Panda [employer] Work Phone: [facility] 10-07-2022 08:00-0400 Body weight 86.81 kg [employer] Vito Panda [employer] Work Phone: [facility] 09-23-2022 08:39-0400 Body weight 87.81 kg [employer] Vito Panda [employer] Work Phone: [facility] Encounters Encounter Date Encounter Type Care Provider Facility Start: 10-06-2024 End: 10-06-2024 Patient encounter procedure Marry Davila [employer] -[facility] Work Phone: Start: 10-06-2024 End: 10-06-2024 ambulatory Vito Panda [employer] Work Phone: -[facility] Start: 09-16-2024 End: 09-20-2024 ambulatory VITO ALANIZKINS REPAIR AR[employer]URE W[employer]ER HELPER - OUTREACH NURSE Facility:[facility] Start: 09-16-2024 End: 09-20-2024 Outreach Lab VITO Kwadwo AMARILYS REPAIR ARMATURE WINDER HELPER - OUTREACH NURSE [facility] Start: 08-18-2024 End: 08-22-2024 ambulatory VITO ALANIZKINS REPAIR ARMATURE WINDER HELPER - OUTREACH NURSE Facility:[facility] Start: 08-16-2024 End: 08-16-2024 Patient encounter procedure Seven Dickinson [employer]MIN[employer] Work Phone: Start: 08-16-2024 End: 08-16-2024 ambulatory Vito Panda [employer] Work Phone: [facility] Start: 08-08-2024 ambulatory Kristy Frazier Facility:[facility] Start: 08-03-2024 End: 08-03-[address] Kristy Frazier [place] [facility] Work Phone: Start: 08-03-2024 End: 08-03-2024 ambulatory Vito Panda [employer] Work Phone: [facility] Work Phone: Start: 08-02-2024 ambulatory Kristy Frazier Facility:[facility] Start: 08-02-2024 Non-patient / Non-visit Dr. Kristy Anne [place] -[facility] Work Phone: Start: 08-01-2024 End: 08-01-[address] Kristy Frazier [place] [facility] Work Phone: Start: 08-01-2024 End: 08-01-2024 ambulatory Vito Panda [employer] Work Phone: [facility] Work Phone: Start: 07-28-2024 End: 07-28-[address] Kristy Frazier [place] [facility] Work Phone: Start: 07-28-2024 End: 07-28-2024 ambulatory Vito Panda [employer] Work Phone: [facility] Work Phone: Start: 07-25-2024 End: 07-25-[address] Kristy Frazier [place] [facility] Work Phone: Start: 07-25-2024 End: 07-25-2024 ambulatory Vito Panda [employer] Work Phone: [facility] Work Phone: Start: 06-07-2024 End: 06-07-2024 Patient encounter procedure Marry LUXC -[facility] Work Phone: Start: 06-07-2024 End: 06-07-2024 Patient encounter procedure Marry LUXC -[facility] Work Phone: Start: 06-07-2024 End: 06-07-2024 Patient encounter status Marry Davila [employer] [facility] Start: 06-07-2024 End: 06-07-2024 ambulatory Vito Panda [employer] WORK[employer] Facility:[facility] Start: 06-07-2024 End: 06-07-2024 ambulatory Marry Davila [facility] [facility] Start: 05-24-2024 End: 05-24-2024 ambulatory Vito Panda CLERICAL AND ADMINISTRATIVE WORKERS-C Work Phone: [facility] Work Phone: Start: 05-24-2024 End: 05-24-2024 Patient encounter procedure Vito Panda [employer]ICAL AND ADMINISTRATIVE WORKERS-C -Laboratory Work Phone: Start: 05-24-2024 End: 05-24-2024 ambulatory iVto Panda CLERICAL AND ADMINISTRATIVE WORKERS Facility:[facility] Start: 02-18-2024 End: 02-18-2024 Patient encounter procedure Vito Panda CLERICAL AND ADMINISTRATIVE WORKERS-C -Laboratory, [place] Work Phone: Start: 02-18-2024 End: 02-18-2024 ambulatory Vito Panda CLERICAL AND ADMINISTRATIVE WORKERS Facility:[facility] Start: 12-24-2023 End: 12-24-2023 ambulatory Vito Panda CLERICAL AND ADMINISTRATIVE WORKERS Facility:[facility] Start: 11-23-2023 End: 11-23-2023 ambulatory Vito Panda [employer]ERICAL AND ADMINISTRATIVE WORKERS Facility:[facility] Start: 02-10-2023 End: 02-10-2023 ambulatory CLERICAL AND ADMINISTRATIVE WORKERS-C Vito Panda CLERICAL AND ADMINISTRATIVE WORKERS Work Phone: [facility] Work Phone: Start: 02-10-2023 End: 02-10-2023 Patient encounter procedure CLERICAL AND ADMINISTRATIVE WORKERS-C Vito Panda [employer]ERICAL AND ADMINISTRATIVE WORKERS Work Phone: [facility]-Laboratory, [place] Work Phone: Start: 02-10-2023 Registered Recurring [employer]ICAL AND ADMINISTRATIVE WORKERS-C Mingo Panda CLERICAL AND ADMINISTRATIVE WORKERS Work Phone: [facility]-Nutritional Services Work Phone: Start: 01-15-2023 End: 02-08-2023 Discharged Recurring CL[employer]ICAL AND ADMINISTRATIVE WORKERS-C Vito Kathleenpkins CLERICAL AND ADMINISTRATIVE WORKERS [facility] Start: 12-30-2022 End: 01-08-2023 ambulatory CLERICAL AND ADMINISTRATIVE WORKERS-C Vito Kulwinder Amarilys CLERICAL AND ADMINISTRATIVE WORKERS Work Phone: [facility] Work Phone: Start: 12-30-2022 End: 01-08-2023 Discharged Recurring CLERICAL AND ADMINISTRATIVE WORKERS-C Vito [place] CLERICAL AND ADMINISTRATIVE WORKERS [facility] Start: 12-22-2022 End: 12-22-2022 ambulatory CLERICAL AND ADMINISTRATIVE WORKERS-C Vito Panda CLERICAL AND ADMINISTRATIVE WORKERS Work Phone: [facility] Work Phone: Start: 12-22-2022 End: 12-22-2022 Discharged Recurring CLERICAL AND ADMINISTRATIVE WORKERS-C Vito Amarilys CLERICAL AND ADMINISTRATIVE WORKERS Work Phone: [facility]-Physical Therapy Work Phone: Start: 12-17-2022 Registered Recurring CLERICAL AND ADMINISTRATIVE WORKERS-C Mingo Panda CLERICAL AND ADMINISTRATIVE WORKERS [facility]: [facility]: Start: 12-09-2022 Registered Recurring [employer]ICAL AND ADMINISTRATIVE WORKERS-C Mingo Panda CLERICAL AND ADMINISTRATIVE WORKERS Work Phone: [facility]-Physical Therapy Work Phone: Start: 11-20-2022 End: 12-09-2022 ambulatory CLERICAL AND ADMINISTRATIVE WORKERS-C Vito Panda CLERICAL AND ADMINISTRATIVE WORKERS Work Phone: [facility] Work Phone: Start: 11-20-2022 End: 12-09-2022 Discharged Recurring CLERICAL AND ADMINISTRATIVE WORKERS-C Vito [place] CLERICAL AND ADMINISTRATIVE WORKERS [facility] Start: 11-05-2022 End: 11-08-2022 ambulatory CLERICAL AND ADMINISTRATIVE WORKERS-C Vito Panda CLERICAL AND ADMINISTRATIVE WORKERS Work Phone: [facility] Work Phone: Start: 11-05-2022 End: 11-08-2022 Discharged Recurring CLERICAL AND ADMINISTRATIVE WORKERS-C Vito Panda CLERICAL AND ADMINISTRATIVE WORKERS [facility] Work [facility]: Start: 11-04-2022 End: 11-04-2022 Patient encounter procedure CLERICAL AND ADMINISTRATIVE WORKERS-C Vito Panda CLERICAL AND ADMINISTRATIVE WORKERS [facility] Work Phone: Start: 10-07-2022 End: 10-07-2022 Patient encounter procedure CLERICAL AND ADMINISTRATIVE WORKERS-C Vito Panda CL[employer]ICAL AND ADMINISTRATIVE WORKERS [facility] Phone[facility] Work Phone: Start: 10-07-2022 End: 10-09-2022 ambulatory CL[employer]ICAL AND ADMINISTRATIVE WORKERS-C Vito Panda CLERICAL AND ADMINISTRATIVE WORKERS Work Phone: [facility] Work Phone: Start: 10-07-2022 End: 10-09-2022 Discharged Recurring CLERICAL AND ADMINISTRATIVE WORKERS-C Vito Panda CLERICAL AND ADMINISTRATIVE WORKERS [facility]: [facility] Work [facility]: Start: 09-12-2022 End: 09-12-2022 Patient encounter procedure CLERICAL AND ADMINISTRATIVE WORKERS-C Vito Panda CLERICAL AND ADMINISTRATIVE WORKERS Work Phone: [facility] Start: 09-02-2022 End: 09-02-2022 Patient encounter procedure CLERICAL AND ADMINISTRATIVE WORKERS-C Vito Panda CLERICAL AND ADMINISTRATIVE WORKERS Work Phone: [facility] Work Phone: Start: 07-29-2022 End: 07-29-2022 Patient encounter procedure CLERICAL AND ADMINISTRATIVE WORKERS-C Vito Kathleenpkins CLERICAL AND ADMINISTRATIVE WORKERS Work Phone[facility] Work Phone: Start: 06-17-2022 End: 06-17-2022 Patient encounter procedure CLERICAL AND ADMINISTRATIVE WORKERS-C Vito Kathleenpkins CLERICAL AND ADMINISTRATIVE WORKERS Work Phone: [facility] Work Phone: Procedures Date Procedure Procedure Detail Performing Clinician Start: 07-28-2024 X-ray of lumbosacral spine Vito Panda [employer] ADMINISTRATIVE WORKERS-C Work Phone: Start: 06-07-2024 Liquid based cervica l cytology screening Vito [place] CL[employer]ICAL AND ADMINISTRATIVE WORKERS-C Work Phone: Comment on above: NEGATIVE FOR INTRAEP ITHELIAL LESION OR MALIGNANCY. This liquid based Th inPrep(R) pap test was screened withthe use of an image guided system. The HPV DNA reflex c riteria were not met with this specimenresult therefore, no HPV testing was performed.Performed at: [address] [id number] Director: Seema Barger MD, Phone: [phone] Start: 09-12-2022 X-ray of both feet [employer]ICAL AND ADMINISTRATIVE WORKERS-C Vito Amarilys [employer] ADMINISTRATIVE WORKERS Work Phone: Plan of Treatment Date Care Activity Detail Author Start: 07-28-2024 X-ray of lumbosacral spine L/S Spine Min 4 Views [facility] Dehydroepiandrostero ne sulfate (DHEA-S) [Mass/volume] in Serum or Plasma [facility] Hemoglobin A1c/Hemog lobin.total in Blood [facility] T4 free measurement [facility] Testosterone Free [M ass/volume] in Serum or Plasma [facility] Thyroid stimulating hormone measurement [facility] Vitamin D, 25-hydroxy measurement [facility] XR Spine Lumbar and Sacrum GE 4 Views [facility] Immunizations Immunization Date Immunization Notes Care Provider Fa jenaro 11-26-2023 influenza, injectabl e, quadrivalent, contains preservative; Translations: [Fluarix PF Prefilled Syringe ] VITO AMARILYS REPAIR ARMATURE WINDER HELPER - OUTREACH NURSE [facility] 11-19-2022 influenza virus vacc ine, unspecified formulation VITO PANDA REPAIR ARMATURE WINDER HELPER - OUTREACH NURSE [facility] 11-19-2022 influenza, injectabl e, quadrivalent, preservative free [employer] AND ADMINISTRATIVE WORKERS-C Vito Panda CLERICAL AND ADMINISTRATIVE WORKERS Work Phone: [facility] 02-17-2022 influenza, injectabl e, quadrivalent, contains preservative; Translations: [Fluarix PF Quadrivalent ] VITO PANDA REPAIR ARMATURE WINDER HELPER - OUTREACH NURSE [facility] 11-01-2021 Hepatitis B vaccine (recombinant), CpG adjuvanted CLERICAL AND ADMINISTRATIVE WORKERS-C Vito Panda CLERICAL AND ADMINISTRATIVE WORKERS Work Phone: [facility] 11-01-2021 hepatitis B vaccine, adult dosage VITO PANDA REPAIR ARMATURE WINDER HELPER - OUTREACH NURSE [facility] 09-26-2021 Hepatitis B vaccine (recombinant), CpG adjuvanted CLERICAL AND ADMINISTRATIVE WORKERS-C Vito Panda CLERICAL AND ADMINISTRATIVE WORKERS Work Phone: [facility] 09-26-2021 hepatitis B vaccine, adult dosage VITO PANDA REPAIR ARMATURE WINDER HELPER - OUTREACH NURSE [facility] 09-21-2020 meningococcal polysaccharide (groups A, C, Y and W-135) diphtheria toxoid conjugate vaccine (MCV4P) Vito Pnada CLERICAL AND ADMINISTRATIVE WORKERS-C Work Phone: [facility] 09-21-2020 meningococcal oligosaccharide (groups A, C, Y and W-135) diphtheria toxoid conjugate vaccine (MCV4O); Translations: [Menveo] VITO PANDA REPAIR ARMATURE WINDER HELPER - OUTREACH NURSE [facility] 11-21-2015 Human Papillomavirus Quadval VITO PANDA REPAIR ARMATURE WINDER HELPER - OUTREACH NURSE [facility] 11-21-2015 influenza virus vacc ine, unspecified formulation VITO PANDA REPAIR ARMATURE WINDER HELPER - OUTREACH NURSE [facility] 08-14-2015 Human Papillomavirus Quadval VITO PANDA REPAIR ARMATURE WINDER HELPER - OUTREACH NURSE [facility] 05-22-2015 Human Papillomavirus Quadval VITO PANDA REPAIR ARMATURE WINDER HELPER - OUTREACH NURSE [facility] 04-30-2015 hepatitis A vaccine, pediatric dosage, unspecified formulation VITO PANDA REPAIR ARMATURE WINDER HELPER - OUTREACH NURSE [facility] 04-30-2015 hepatitis A vaccine, pediatric/adolescent dosage, 2 dose schedule Vito Panda CLERICAL AND ADMINISTRATIVE WORKERS-C Work Phone: [facility] 04-30-2015 meningococcal polysaccharide (groups A, C, Y and W-135) diphtheria toxoid conjugate vaccine (MCV4P) Vito Panda CLERICAL AND ADMINISTRATIVE WORKERS-C Work Phone: [facility] 04-30-2015 tetanus toxoid, redu alonso diphtheria toxoid, and acellular pertussis vaccine, adsorbed Vito Panda CLERICAL AND ADMINISTRATIVE WORKERS-C Work Phone: [facility] 02-17-2008 Diphtheria, tetanus toxoids and acellular pertussis vaccine, and poliovirus vaccine, inactivated VITO PANDA REPAIR ARMATURE WINDER HELPER - OUTREACH NURSE [facility] 02-17-2008 measles, mumps, rube lla, and varicella virus vaccine Vito Panda CLERICAL AND ADMINISTRATIVE WORKERS-C Work Phone: [facility] 10-08-2004 varicella virus vaccine Mingo Panda CLERICAL AND ADMINISTRATIVE WORKERS-C Work Phone: [facility] 05-09-2004 haemophilus influenz ae type b vaccine, PRP-T conjugate VITO PANDA REPAIR ARMATURE WINDER HELPER - OUTREACH NURSE [facility] 05-09-2004 measles, mumps and rubella virus vaccine Viot Panda CLERICAL AND ADMINISTRATIVE WORKERS-C Work Phone: [facility] 05-09-2004 measles/mumps/rubell a virus vaccine VITO PANDA REPAIR ARMATURE WINDER HELPER - OUTREACH NURSE [facility] 05-09-2004 poliovirus vaccine, inactivated VITO PANDA REPAIR ARMATURE WINDER HELPER - OUTREACH NURSE [facility] 01-09-2004 hepatitis B pediatri c vaccine VITO KATHLEENPKINS REPAIR ARMATURE WINDER HELPER - OUTREACH NURSE [facility] 01-09-2004 hepatitis B vaccine, pediatric or pediatric/adolescent dosage Vito Panda CLERICAL AND ADMINISTRATIVE WORKERS-C Work Phone: [facility] 2003 DTaP-Haemophilus influenzae type b conjugate vaccine VITO KATHLEENPKINS REPAIR ARMATURE WINDER HELPER - OUTREACH NURSE [facility] 2003 diphtheria, tetanus toxoids and acellular pertussis vaccine, Haemophilus influenzae type b conjugate, and poliovirus vaccine, inactivated ([id number]-[id number]-[id number]) VITO KATHLEENPKINS REPAIR ARMATURE WINDER HELPER - OUTREACH NURSE [facility] 2003 DTaP-hepatitis B and poliovirus vaccine VITO KATHLEENPKINS REPAIR ARMATURE WINDER HELPER - OUTREACH NURSE [facility] 2003 haemophilus influenz ae type b vaccine, PRP-T conjugate VITO KATHLEENPKINS REPAIR ARMATURE WINDER HELPER - OUTREACH NURSE [facility] 2003 hepatitis B pediatri c vaccine VITO KATHLEENPKINS REPAIR ARMATURE WINDER HELPER - OUTREACH NURSE [facility] 2003 hepatitis B vaccine, pediatric or pediatric/adolescent dosage Vito Amarilys CLERICAL AND ADMINISTRATIVE WORKERS-C Work Phone: [facility] Payers Date Payer Category Payer Private Health Insurance [id number] 2023 Self-pay 2023 Unknown [id number] 2003 Unknown [id number] 2.16. [id number] 2003 Unknown [id number] 2.16. [id number] Private Health Insurance [id number] Unknown [id number] 2.16.8 [id number] Unknown [id number] 2.16.8 [id number] Unknown [id number] 2.16.8 [id number] Unknown [id number] 2.16.8 [id number] Unknown [id number] 2.16.8 [id number] Unknown [id number] 2.16.8 [id number] Unknown [id number] 2.16.8 [id number] Unknown [id number] 2.16.8 [id number] Unknown [id number] 2.16.8 [id number] Unknown [id number] 2.16.8 [id number] Unknown [id number] 2.16.8 [id number] Unknown [id number] 2.16.8 [id number] Unknown [id number] 2.16.8 [id number] Unknown [id number] 2.16.8 [id number] Unknown [id number] 2.16.8 [id number] Social History Date Type Detail Facility Start: 10-07-2022 End: 11-04-2022 Tobacco smoking status NHIS Unknown if ever smoked [facility] Start: 2005 Sex Assigned At Female [facility] Start: 02-26-2023 End: 07-28-2024 Tobacco smoking status NHIS Never smoked tobacco (finding) [facility] Start: 04-26-2015 End: 05-30-2024 Sex Female (finding) [facility] Sexual Orientation [facility] ospital Goals Date Patient Goal Desired Activity /State Clinical Notes 12-22-2022 to 10-06-2024 Note Date & Type Note Facility 10-06-2024 Progress note [facility] 09-18-2024 Note . MICRO - Microbiology PROCEDURE: Throat Culture [*1] SOURCE: Throat BODY SITE: COLLECTED DATE/TIME: 09/16/2024 16:14 EDT RECEIVED DATE/TIME: 09/16/2024 19:08 EDT START DATE/TIME: 09/16/2024 19:08 EDT FREE TEXT SOURCE: FINAL REPORTS Final Report [] Verified Date/Time/Personnel: 09/18/2024 09:51 EDT Normal throat nazia present Sensitivity Testing: Not Indicated PRELIMINARY REPORTS Preliminary Report [] Verified Date/Time/Personnel: 09/17/2024 10:11 EDT Culture results pending. Performing Locations *1: This test was performed at: [facility], [address] [place] [address], [id number] , [facility] 08-22-2024 Note . MICRO - Microbiology PROCEDURE: Throat Culture [*1] SOURCE: Throat BODY SITE: COLLECTED DATE/TIME: 08/19/2024 16:21 EDT RECEIVED DATE/TIME: 08/20/2024 11:29 EDT START DATE/TIME: 08/20/2024 11:29 EDT FREE TEXT SOURCE: FINAL REPORTS Final Report [] Verified Date/Time/Personnel: 08/22/2024 09:14 EDT Heavy Staphylococcus aureus Normal throat nazia present Sensitivity Testing: Not Indicated PRELIMINARY REPORTS Preliminary Report [] Verified Date/Time/Personnel: 08/21/2024 09:42 EDT Culture results pending. SUSCEPTIBILITY RESULTS Staphylococcus aureus Antibiotic ERICK Dilut ERICK Inter ID Panel Not Not Applicable Applicable Performing Locations *1: This test was performed at: [facility], [address] [place] [address], [id number] , [facility] 07-25-2024 Evaluation note Diagnosis Onset Date Resolution Segmental and somatic dysfunction of lumbar region acute July 25, 2024 2:58pm Segmental and somatic dysfunction of pelvic region acute July 25, 2024 2:58pm Segmental and somatic dysfunction of thoracic region acute July 25, 2024 2:58pm Segmental and somatic dysfunction of lumbar region acute July 28, 2024 10:03am Segmental and somatic dysfunction of pelvic region acute July 28, 2024 10:03am Segmental and somatic dysfunction of thoracic region acute July 28, 2024 10:03am Back pain acute August 01 4:01pm Segmental and somatic dysfunction of lumbar region acute August 01, 2024 4:01pm Segmental and somatic dysfunction of pelvic region acute August 01, 2024 4:01pm Segmental and somatic dysfunction of thoracic region acute August 01, 2024 4:01pm Segmental and somatic dysfunction of lumbar region acute August 03, 2024 10:45am Segmental and somatic dysfunction of pelvic region acute August 03, 2024 10:45am Segmental and somatic dysfunction of thoracic region acute August 03, 2024 10:45am Sore throat acute August 16 7:44am Abnormal facial hair acute Augu st 2024 8:16am Low libido acute October 06, 2 025 8:16am [facility] Work Phone: 1(741) 123-649504-29-2025 Evaluation note* Diagnosis Onset Date Resolution Status Admit Date Irregular menses acute June 072024 11:29am Encounter for routine gynecological examination noneactive June 07, 2024 11:29am Segmental and somatic dysfunction of cervical region acute J une 2024 2:58pm Segmental and somatic dysfunction of lumbar region acute [place] 2024 2:58pm Segmental and somatic dysfunction of sacral region acute [place] 2024 2:58pm Segmental and somatic dysfunction of thoracic region acute J une 2024 2:58pm [facility] Work Phone: 1(481) 255-230304-29-2025 Evaluation note* Diagnosis Onset Date Resolution Status Admit Date Irregular menses acute June 072024 11:29am Encounter for routine gynecological examination noneactive June 07, 2024 11:29am Segmental and somatic dysfunction of lumbar region acute [place] 2024 2:58pm Segmental and somatic dysfunction of pelvic region acute [place] 2024 2:58pm Segmental and somatic dysfunction of thoracic region acute J [facility] 2024 2:58pm Segmental and somatic dysfunction of cervical region acute J une 2024 10:03am Segmental and somatic dysfunction of lumbar region acute [place] 2024 10:03am Segmental and somatic dysfunction of pelvic region acute [place] 2024 10:03am Segmental and somatic dysfunction of sacral region acute [place] 2024 10:03am Segmental and somatic dysfunction of thoracic region acute J [facility] 2024 10:03am [facility] Work Phone: 1(350) 210-831504-29-2025 Evaluation note* Diagnosis Onset Date Resolution Status Admit Date Irregular menses acute June 072024 11:29am Encounter for routine gynecological examination noneactive June 07, 2024 11:29am Segmental and somatic dysfunction of lumbar region acute [place] 2024 2:58pm Segmental and somatic dysfunction of pelvic region acute [place] 2024 2:58pm Segmental and somatic dysfunction of thoracic region acute J une 2024 2:58pm Segmental and somatic dysfunction of lumbar region acute [place] 2024 10:03am Segmental and somatic dysfunction of pelvic region acute [place] 2024 10:03am Segmental and somatic dysfunction of thoracic region acute J une 2024 10:03am Segmental and somatic dysfunction of cervical region acute J une 2024 4:01pm Segmental and somatic dysfunction of lumbar region acute [place] 2024 4:01pm Segmental and somatic dysfunction of pelvic region acute [place] 2024 4:01pm Segmental and somatic dysfunction of sacral region acute [place] 2024 4:01pm Segmental and somatic dysfunction of thoracic region acute J une 2024 4:01pm [facility] Work Phone: 1(699) 300-187304-29-2025 Evaluation note* Diagnosis Onset Date Resolution Status Admit Date Irregular menses acute June 072024 11:29am Encounter for routine gynecological examination noneactive June 07, 2024 11:29am Segmental and somatic dysfunction of lumbar region acute [place] 2024 2:58pm Segmental and somatic dysfunction of pelvic region acute [place] 2024 2:58pm Segmental and somatic dysfunction of thoracic region acute J une 2024 2:58pm Segmental and somatic dysfunction of lumbar region acute [place] 2024 10:03am Segmental and somatic dysfunction of pelvic region acute [place] 2024 10:03am Segmental and somatic dysfunction of thoracic region acute J une 2024 10:03am Back pain acute August 01 4:01pm Segmental and somatic dysfunction of lumbar region acute [place] 2024 4:01pm Segmental and somatic dysfunction of pelvic region acute [place] 2024 4:01pm Segmental and somatic dysfunction of thoracic region acute J une 2024 4:01pm Segmental and somatic dysfunction of cervical region acute J une 2024 10:45am Segmental and somatic dysfunction of lumbar region acute [place] 2024 10:45am Segmental and somatic dysfunction of pelvic region acute [place] 2024 10:45am Segmental and somatic dysfunction of sacral region acute [place] 2024 10:45am Segmental and somatic dysfunction of thoracic region acute J une 2024 10:45am [facility] Work Phone: 1(492) 327-448604-29-2025 Evaluation note* Diagnosis Onset Date Resolution Status Admit Date Irregular menses acute June 072024 11:29am Encounter for routine gynecological examination noneactive June 07, 2024 11:29am Segmental and somatic dysfunction of lumbar region acute [place] 2024 2:58pm Segmental and somatic dysfunction of pelvic region acute [place] 2024 2:58pm Segmental and somatic dysfunction of thoracic region acute J une 2024 2:58pm Segmental and somatic dysfunction of lumbar region acute [place] 2024 10:03am Segmental and somatic dysfunction of pelvic region acute [place] 2024 10:03am Segmental and somatic dysfunction of thoracic region acute J une 2024 10:03am Back pain acute August 01 4:01pm Segmental and somatic dysfunction of lumbar region acute [place] 2024 4:01pm Segmental and somatic dysfunction of pelvic region acute Jul 4:01pm Segmental and somatic dysfunction of thoracic region acute J une 2024 4:01pm Segmental and somatic dysfunction of lumbar region acute Jul 10:45am Segmental and somatic dysfunction of pelvic region acute Jul 10:45am Segmental and somatic dysfunction of thoracic region acute J une 2024 10:45am [facility] Work Phone: 1(686) 687-782011-13-2023 Discharge summary Author Sheyla Marc [facility] December 22, 2022 5:44pm Note Date/Time December 22, 2022 5:44pm [facility] Physical Therapy [facility] [address] [place] [address] [address] [place] [address] / REHABILITATION SERVICES DISCHARGE SUMMARY MR#: [id number] Acct: [id number] Name: TAMI FUNG Rep #: [id number] 1 : 2005 17 From: Sheyla Marc PT, Cert. MDT Referring Dr.: GRISEL Alexander Status: REG RCR Insurance: [employer] SELF PAY INSURANCE Discharge Summary D/C summary: It has been my pleasure to treat TAMI FUNG referred by GRISEL Alexander, with the diagnosis of LOW BACK AND R HIP PAIN for a total of 14 visit(s). Discharge Date: Please see the following information for a summary of their discharge status. Subjective Subjective: PATIENT REPORTS HER STRENGTH IS DEFINATELY BETTER. I ALSO NOTICED THAT WHEN I [employer] ON SUNDAYS I DON'T HAVE PAIN - JUST A LITTLE TIGHTNESS - SO THE PAIN IS BETTER. SHE STATES SHE PLANS TO CONTINUE HER EX'S HERE AT [facility] AND FEELS READY TOCONTINUE ON HER OWN NOW. Pain R hip: Pain Intensity (Out of 10): 0 Overall Improvement % Improvement: 90 Objective Objective/Function: PATIENT WAS SEEN TODAY FOR RE-ASSESSMENT OF PROGRESS TOWARD THE SET PT GOALS AND THE NEED FOR FURTHER PHYSICAL THERAPY VS READINESS FOR DISCHARGE. THIS PATIENT HAS RESPONDED REALLY WELL TO PT AND IS APPROPRIATE FOR D/C TO INDEPEX. PATIENT IS AGREEABLE. UPON EXAM TODAY: Motor deficit: ESTRELLITA LE'S 5/5 WITH MMT'ING Dural Signs: NEGATIVE ESTRELLITA LE'S. Lumbar mvmt loss: flex - NIL ext - NIL R SG - NIL L SG - NIL PATIENT DENIES PAIN WITH LUMBAR ROM TESTING ALL PLANES. Core strength: GOOD Goals Goal 1:: DECREASE C/O LOW BACK AND HIP PAIN BY 50% Goal Progress: Goal Met Goal 2:: PATIENT WILL DEMONSTRATE GOOD POSTURE CONTROL AND BODY MECHANICS THROUGHOUT PT SESSION Goal Progress: Goal Met Goal 3:: INCREASE CORE AND HIP STRENGTH TO GOOD TO IMPROVE STANDING AND WALKING TOLERANCE Goal Progress: Goal Met Goal 4:: PATIENT WILL BE INDEP WITH AN EX PROGRAM FOR CONTINUED IMPROVEMENT ONCEFORMAL PHYSICAL THERAPY CONCLUDES. Goal Progress: Goal Met Plan Plan: D/C TO INDEP EX D/C Information d/c sentence: If there are questions or concerns regarding this patient's physical therapy, please feel free to call me at [phone]. Thank you for the referral of thispatient. Sincerely, Sheyla Marc, PT, Cert MDT Balance/Gait/Functional tests Balance/Special Test Scores Oswestry Low Back Score: 0 Improvement % Improvement: 90 <Electronically signed by Sheyla Marc PT, Cert. MDT> 12/22/22 1744 CC: CLERICAL AND ADMINISTRATIVE WORKERSDouglas Panda; GRISEL Alexander ~ AMANDA Signed [facility] Work Phone: Evaluation + Plan note Future Appointments Appointment Date:11/15/2024 03:20:00 PM Scheduled Provider:VITO PANDA APRN - JOAQUIN Location:[facility] Appointment Type: OV Future Scheduled Tests Laboratory* Mononucleosis Screen 09/21/24 * Complete Blood Count 09/26/24 * Lipid Profile 05/19/24 * Lipid Profile 08/18/24 * Lipid Profile 11/23/24 * Lipid Profile 02/21/24 * Vitamin D Level 08/18/24 * Vitamin D Level 11/23/24 * Vitamin D Level 02/21/24 * Complete Metabolic Panel 05/19/24 * Complete Metabolic Panel 08/18/24 * Complete Metabolic Panel 09/26/24 * Complete Metabolic Panel 11/23/24 * Complete Metabolic Panel 02/21/24 [facility] Evaluation note* Diagnosis Onset Date Resolution Status Back pain acute Segmental and somatic dysfunction of lumbar region acute Segmental and somatic dysfunction of sacral region acute Segmental and somatic dysfunction of thoracic region acute Back pain acute Segmental and somatic dysfunction of lumbar region acute Segmental and somatic dysfunction of sacral region acute Segmental and somatic dysfunction of thoracic region acute Back pain acute Segmental and somatic dysfunction of cervical region acute Segmental and somatic dysfunction of lumbar region acute Segmental and somatic dysfunction of sacral region acute Segmental and somatic dysfunction of thoracic region acute Back pain acute Segmental and somatic dysfunction of cervical region acute Segmental and somatic dysfunction of lumbar region acute Segmental and somatic dysfunction of sacral region acute Segmental and somatic dysfunction of thoracic region acute [facility] Work Phone: Evaluation note* Diagnosis Onset Date Resolution Status Back pain acute Segmental and somatic dysfunction of lumbar region acute Segmental and somatic dysfunction of sacral region acute Segmental and somatic dysfunction of thoracic region acute Back pain acute Segmental and somatic dysfunction of cervical region acute Segmental and somatic dysfunction of lumbar region acute Segmental and somatic dysfunction of sacral region acute Segmental and somatic dysfunction of thoracic region acute Back pain acute Segmental and somatic dysfunction of cervical region acute Segmental and somatic dysfunction of lumbar region acute Segmental and somatic dysfunction of sacral region acute Segmental and somatic dysfunction of thoracic region acute Back pain acute Segmental and somatic dysfunction of lumbar region acute Segmental and somatic dysfunction of sacral region acute Segmental and somatic dysfunction of thoracic region acute [facility] Work Phone: Evaluation note* Diagnosis Onset Date Resolution Status Back pain acute Segmental and somatic dysfunction of cervical region acute Segmental and somatic dysfunction of lumbar region acute Segmental and somatic dysfunction of sacral region acute Segmental and somatic dysfunction of thoracic region acute Back pain acute Segmental and somatic dysfunction of cervical region acute Segmental and somatic dysfunction of lumbar region acute Segmental and somatic dysfunction of sacral region acute Segmental and somatic dysfunction of thoracic region acute Back pain acute Segmental and somatic dysfunction of lumbar region acute Segmental and somatic dysfunction of sacral region acute Segmental and somatic dysfunction of thoracic region acute [facility] Work Phone: Evaluation note* Diagnosis Onset Date Resolution Status Back pain acute Segmental and somatic dysfunction of cervical region acute Segmental and somatic dysfunction of lumbar region acute Segmental and somatic dysfunction of sacral region acute Segmental and somatic dysfunction of thoracic region acute Back pain acute Segmental and somatic dysfunction of lumbar region acute Segmental and somatic dysfunction of sacral region acute Segmental and somatic dysfunction of thoracic region acute [facility] Work Phone: Evaluation note* Diagnosis Onset Date Resolution Status Back pain acute Segmental and somatic dysfunction of lumbar region acute Segmental and somatic dysfunction of sacral region acute Segmental and somatic dysfunction of thoracic region acute [facility] Work Phone: Evaluation noteNo assessment information available [facility] Work Phone: Hospital course Narrative No data available for this section [facility] Hospital Discharge instructions No data available for this section [facility] Progress note No data available for this section [facility] Progress note Author Marry Davila [facility] Note Date/Time October 06, 2024 8: 54am 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: No Is patient in pain?: No Allergies No Known Allergies Allergy (Verified 10/06/24 08:20) Medications ?Medication ?Instructions ?Recorded ?Confirmed ?Type cholecalciferol (vitamin D3) 1,250 1,250 mcg PO QMONTH 04/21/24 10/06/24 History mcg (50,000 unit) capsule fenofibrate nanocrystallized 145 145 mg PO QDAY 10/06/24 History mg tablet sertraline 50 mg tablet 50 mg PO QDAY 04/21/2410/06 History Is last menstrual period known: Yes Last Menstrual Period: 09/15/24 Post menopausal: No Patient : No : No Control Method: none PFSH Medical History Sore throat Vitamin D deficiency High triglycerides Social anxiety disorder Family History Mother Diabetes Hormone imbalance Grandmother Diabetes Skin cancer Grandfather Diabetes Heart disease Social History adopted: No number of children: 0 current occupational status: employed 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 She reports she has noticed this more over the past year. No desire; currently sexually active with fiance. One partner. She reports she has also experienced facial hair, irregular periods. She would like to pursue evaluation for this. Female Reproductive History Last Menstrual Period: 09/15/24 History 0 Elective abortions Hx Para Spontaneous abortions Hx # Term Pregnancies Ectopic pregnancies Hx # Pregnancies Multiple births # of living children ROS Const Constitutional: Denies fatigue Resp Resp: Denies cough Psych Psych: Denies anxiety (controlled on medications.) or depression Endo Endo: Denies cold intolerance, excessive sweating or heat intolerance Exam Const General: cooperative, healthy appearing, comfortable, no acute distress, well groomed and well hydrated Nutritional Appearance: well nourished Orientation: alert, awake and oriented x3 Resp Effort & Inspection: normal respiratory effort, able to speak in complete sentences and symmetric chest movement Neuro General: patient alert, patient awake, patient oriented x3 and moves all extremities Psych Appearance: grossly normal Mental Status: mental status grossly normal Affect: normal affect Speech and Movement: speech and movement normal Attitude: cooperative Coding Level of Care Code Established Pt Off vis,est,level 3 Patient Type Established Diagnoses Abnormal facial hair L67.8 Low libido R68.82 Assessment and Plan Assessment and Plan (1) Abnormal facial hair: Status: Acute Plan: check labs; consider spirolactone. Final plan with results. (2) Low libido: Status: Acute Plan: Discussed scheduled thought processes. Encouraged to contact PCP for discussion of sertraline side effects and if this may be related/modified. Encouraged open discussion with fiance. Orders: Orders Testosterone Free Today L67.8 - Other hair color and hair shaft abnormalities, R68.82 - Decreased libido DHEA Sulfate Today L67.8 - Other hair color and hair shaft abnormalities, R68.82 - Decreased libido Plan Details Goals & Barriers: Goals Decrease pain Decrease spasm Improve ROM 10/06/24 0854 <Electronically signed by Marry LING> Date _ Marry LING Cosigner Signature: Date (if applicable) CC: ~ [facility] Work Phone: Reason for referral (narrative)No reason for referral information availableWMartin [facility] Work Phone: Chief Complaint and Reason for Visit Chief Complaint Back pain Back pain Back pain xray OBESITY Back pain Reason for Visit Back pain Segmental and somatic dysfunction of lumbar region Segmental and somatic dysfunction of sacral region Segmental and somatic dysfunction of thoracic region Back pain Segmental and somatic dysfunction of lumbar region Segmental and somatic dysfunction of sacral region Segmental and somatic dysfunction of thoracic region Back pain Segmental and somatic dysfunction of cervical region Segmental and somatic dysfunction of lumbar region Segmental and somatic dysfunction of sacral region Segmental and somatic dysfunction of thoracic region Back pain Segmental and somatic dysfunction of cervical region Segmental and somatic dysfunction of lumbar region Segmental and somatic dysfunction of sacral region Segmental and somatic dysfunction of thoracic region Chief Complaint Back pain Back pain xray OBESITY Back pain Back pain OBESITY Reason for Visit Back pain Segmental and somatic dysfunction of lumbar region Segmental and somatic dysfunction of sacral region Segmental and somatic dysfunction of thoracic region Back pain Segmental and somatic dysfunction of cervical region Segmental and somatic dysfunction of lumbar region Segmental and somatic dysfunction of sacral region Segmental and somatic dysfunction of thoracic region Back pain Segmental and somatic dysfunction of cervical region Segmental and somatic dysfunction of lumbar region Segmental and somatic dysfunction of sacral region Segmental and somatic dysfunction of thoracic region Back pain Segmental and somatic dysfunction of lumbar region Segmental and somatic dysfunction of sacral region Segmental and somatic dysfunction of thoracic region Chief Complaint Back pain xray OBESITY Back pain Back pain OBESITY OBESITY BACK PAIN. RX HERE Reason for Visit Back pain Segmental and somatic dysfunction of cervical region Segmental and somatic dysfunction of lumbar region Segmental and somatic dysfunction of sacral region Segmental and somatic dysfunction of thoracic region Back pain Segmental and somatic dysfunction of cervical region Segmental and somatic dysfunction of lumbar region Segmental and somatic dysfunction of sacral region Segmental and somatic dysfunction of thoracic region Back pain Segmental and somatic dysfunction of lumbar region Segmental and somatic dysfunction of sacral region Segmental and somatic dysfunction of thoracic region Chief Complaint Back pain xray OBESITY Back pain Back pain OBESITY OBESITY OBESITY BACK PAIN. RX HERE Reason for Visit Back pain Segmental and somatic dysfunction of cervical region Segmental and somatic dysfunction of lumbar region Segmental and somatic dysfunction of sacral region Segmental and somatic dysfunction of thoracic region Back pain Segmental and somatic dysfunction of cervical region Segmental and somatic dysfunction of lumbar region Segmental and somatic dysfunction of sacral region Segmental and somatic dysfunction of thoracic region Back pain Segmental and somatic dysfunction of lumbar region Segmental and somatic dysfunction of sacral region Segmental and somatic dysfunction of thoracic region Chief Complaint xray OBESITY Back pain Back pain OBESITY OBESITY BACK PAIN. RX HERE OBESITY Reason for Visit Back pain Segmental and somatic dysfunction of cervical region Segmental and somatic dysfunction of lumbar region Segmental and somatic dysfunction of sacral region Segmental and somatic dysfunction of thoracic region Back pain Segmental and somatic dysfunction of lumbar region Segmental and somatic dysfunction of sacral region Segmental and somatic dysfunction of thoracic region Chief Complaint Back pain OBESITY OBESITY BACK PAIN. 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 11: 29am REEVAL July 25, 2024 2:58 pm Reason for Visit Admit Date Irregular menses June 07, 2024 11: 29am Encounter for routine gynecological exam ination June 07, 2024 11:29am Segmental and somatic dysfunction of cer vical region July 25, 2024 2:58pm Segmental and somatic dysfunction of lum bar region July 25, 2024 2:58pm Segmental and somatic dysfunction of sac ral region July 25, 2024 2:58pm Segmental and somatic dysfunction of tho racic region July 25, 2024 2:58pm Chief Complaint 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, 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 11: 29am REEVAL July 25, 2024 2:58 pm BACK PAIN July 28, 2024 10:0 3am Reason for Visit Admit Date Irregular menses June 07, 2024 11: 29am Encounter for routine gynecological exam ination June 07, 2024 11:29am Segmental and somatic dysfunction of lum bar region July 25, 2024 2:58pm Segmental and somatic dysfunction of pel lopez region July 25, 2024 2:58pm Segmental and somatic dysfunction of tho racic region July 25, 2024 2:58pm Segmental and somatic dysfunction of cer vical region July 28, 2024 10:03am Segmental and somatic dysfunction of lum bar region July 28, 2024 10:03am Segmental and somatic dysfunction of pel lopez region July 28, 2024 10:03am Segmental and somatic dysfunction of sac ral region July 28, 2024 10:03am Segmental and somatic dysfunction of tho racic region July 28, 2024 10:03am Chief Complaint 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, 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 11: 29am REEVAL July 25, 2024 2:58 pm BACK PAIN July 28, 2024 10:0 3am XRAY July 28, 2024 10:4 8am Chief Complaint 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, 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 11: 29am REEVAL July 25, 2024 2:58 pm BACK PAIN July 28, 2024 10:0 3am XRAY July 28, 2024 10:4 8am BACK PAIN August 01, 2024 4:01 pm Reason for Visit Admit Date Irregular menses June 07, 2024 11: 29am Encounter for routine gynecological exam ination June 07, 2024 11:29am Segmental and somatic dysfunction of lum bar region July 25, 2024 2:58pm Segmental and somatic dysfunction of pel lopez region July 25, 2024 2:58pm Segmental and somatic dysfunction of tho racic region July 25, 2024 2:58pm Segmental and somatic dysfunction of lum bar region July 28, 2024 10:03am Segmental and somatic dysfunction of pel lopez region July 28, 2024 10:03am Segmental and somatic dysfunction of tho racic region July 28, 2024 10:03am Segmental and somatic dysfunction of cer vical region August 01, 2024 4:01pm Segmental and somatic dysfunction of lum bar region August 01, 2024 4:01pm Segmental and somatic dysfunction of pel lopez region August 01, 2024 4:01pm Segmental and somatic dysfunction of sac ral region August 01, 2024 4:01pm Segmental and somatic dysfunction of tho racic region August 01, 2024 4:01pm Chief Complaint 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, 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 11: 29am REEVAL July 25, 2024 2:58 pm BACK PAIN July 28, 2024 10:0 3am XRAY July 28, 2024 10:4 8am BACK PAIN August 01, 2024 4:01 pm BACK PAIN August 03, 2024 10:4 5am Reason for Visit Admit Date Irregular menses June 07, 2024 11: 29am Encounter for routine gynecological exam ination June 07, 2024 11:29am Segmental and somatic dysfunction of lum bar region July 25, 2024 2:58pm Segmental and somatic dysfunction of pel lopez region July 25, 2024 2:58pm Segmental and somatic dysfunction of tho racic region July 25, 2024 2:58pm Segmental and somatic dysfunction of lum bar region July 28, 2024 10:03am Segmental and somatic dysfunction of pel lopez region July 28, 2024 10:03am Segmental and somatic dysfunction of tho racic region July 28, 2024 10:03am Back pain August 01, 2024 4:01 pm Segmental and somatic dysfunction of lum bar region August 01, 2024 4:01pm Segmental and somatic dysfunction of pel lopez region August 01, 2024 4:01pm Segmental and somatic dysfunction of tho racic region August 01, 2024 4:01pm Segmental and somatic dysfunction of cer vical region August 03, 2024 10:45am Segmental and somatic dysfunction of lum bar region August 03, 2024 10:45am Segmental and somatic dysfunction of pel lopez region August 03, 2024 10:45am Segmental and somatic dysfunction of sac ral region August 03, 2024 10:45am Segmental and somatic dysfunction of tho racic region August 03, 2024 10:45am Chief Complaint 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, 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 11: 29am REEVAL July 25, 2024 2:58 pm BACK PAIN July 28, 2024 10:0 3am XRAY July 28, 2024 10:4 8am BACK PAIN August 01, 2024 4:01 pm BACK PAIN August 03, 2024 10:4 5am SORE THROAT August 16, 2024 7:44a m Reason for Visit Admit Date Irregular menses June 07, 2024 11: 29am Encounter for routine gynecological exam ination June 07, 2024 11:29am Segmental and somatic dysfunction of lum bar region July 25, 2024 2:58pm Segmental and somatic dysfunction of pel lopez region July 25, 2024 2:58pm Segmental and somatic dysfunction of tho racic region July 25, 2024 2:58pm Segmental and somatic dysfunction of lum bar region July 28, 2024 10:03am Segmental and somatic dysfunction of pel lopez region July 28, 2024 10:03am Segmental and somatic dysfunction of tho racic region July 28, 2024 10:03am Back pain August 01, 2024 4:01 pm Segmental and somatic dysfunction of lum bar region August 01, 2024 4:01pm Segmental and somatic dysfunction of pel lopez region August 01, 2024 4:01pm Segmental and somatic dysfunction of tho racic region August 01, 2024 4:01pm Segmental and somatic dysfunction of lum bar region August 03, 2024 10:45am Segmental and somatic dysfunction of pel lopez region August 03, 2024 10:45am Segmental and somatic dysfunction of tho racic region August 03, 2024 10:45am Chief Complaint Admit Date REEVAL July 25, 2024 2:58 pm BACK PAIN July 28, 2024 10:0 3am XRAY July 28, 2024 10:4 8am BACK PAIN August 01, 2024 4:01 pm BACK PAIN August 03, 2024 10:4 5am SORE THROAT August 16, 2024 7:44a m Low Libido October 06, 2024 8: 16am Reason for Visit Admit Date Segmental and somatic dysfunction of lum bar region July 25, 2024 2:58pm Segmental and somatic dysfunction of pel lopez region July 25, 2024 2:58pm Segmental and somatic dysfunction of tho racic region July 25, 2024 2:58pm Segmental and somatic dysfunction of lum bar region July 28, 2024 10:03am Segmental and somatic dysfunction of pel lopez region July 28, 2024 10:03am Segmental and somatic dysfunction of tho racic region July 28, 2024 10:03am Back pain August 01, 2024 4:01 pm Segmental and somatic dysfunction of lum bar region August 01, 2024 4:01pm Segmental and somatic dysfunction of pel lopez region August 01, 2024 4:01pm Segmental and somatic dysfunction of tho racic region August 01, 2024 4:01pm Segmental and somatic dysfunction of lum bar region August 03, 2024 10:45am Segmental and somatic dysfunction of pel lopez region August 03, 2024 10:45am Segmental and somatic dysfunction of tho racic region August 03, 2024 10:45am Sore throat August 16, 2024 7:44a m Abnormal facial hair October 06, 2024 8 :16am Low libido October 06, 2024 8: 16am Family History No Family History Records Found Relationship Condition Age at Onset Recorded Date/T tonia mother Diabetes mellitus Unknown Disorder of endocrine system Unknown grandmother Diabetes mellitus Unknown Malignant neoplasm of skin Unknown grandfather Diabetes mellitus Unknown Cardiac disease Unknown Summary Purpose Advance Directives No Advanced Directives Records FoundNo Advanced Directives Records Found Additional Source Comments Care Teams (unrecognized sec tion and content) Team Status: Active Member Role Status Dates Vito Panda CLERICAL AND ADMINISTRATIVE WORKERS, CLERICAL AND ADMINISTRATIVE WORKERS-C Primary Care Provider Active Team Status: Inactive Member Role Status Dates Vito Panda CLERICAL AND ADMINISTRATIVE WORKERS, CLERICAL AND ADMINISTRATIVE WORKERS-C Primary Care Provider, Referring Provider Active Dr. Kristy Frazier , BENITO Attending Provider Active Team Status: Inactive Member Role Status Dates Vito Panda CLERICAL AND ADMINISTRATIVE WORKERS, CLERICAL AND ADMINISTRATIVE WORKERS-C Primary Care Provider Active Dr. Chavez Hernandez MD Attending Provider Active Team Status: Inactive Member Role Status Dates Vito Panda CLERICAL AND ADMINISTRATIVE WORKERS, CLERICAL AND ADMINISTRATIVE WORKERS-C Primary Care Provider, Attending Provider, Referring Provider Active Team Status: Active Member Role Status Dates Vito Panda CLERICAL AND ADMINISTRATIVE WORKERS, CLERICAL AND ADMINISTRATIVE WORKERS-C Primary Care Provider Active GRISEL Gonzalez Attending Provider Active Team Status: Inactive Member Role Status Dates Vito Panda CLERICAL AND ADMINISTRATIVE WORKERS, CLERICAL AND ADMINISTRATIVE WORKERS-C Primary Care Provider Active GRISEL Gonzalez Attending Provider Active Team Status: Active Member Role Status Dates Vito Panda CLERICAL AND ADMINISTRATIVE WORKERS, CLERICAL AND ADMINISTRATIVE WORKERS-C Primary Care Provider, Attending Provider, Referring Provider Active Team Status: Inactive Member Role Status Dates Vito Panda CLERICAL AND ADMINISTRATIVE WORKERS, CLERICAL AND ADMINISTRATIVE WORKERS-C Primary Care Provider Active Start: February End: February 18, 2024 Vito Panda CLERICAL AND ADMINISTRATIVE WORKERS, CLERICAL AND ADMINISTRATIVE WORKERS-C Attending Provider Active Start: February 18, 2024 End: February 18, 2024 Vito Panda CLERICAL AND ADMINISTRATIVE WORKERS, CLERICAL AND ADMINISTRATIVE WORKERS-C Referring Provider Active Start: February 18, 2024 End: February 18, 2024 Team Status: Inactive Member Role Status Dates Vito Panda [employer] ADMINISTRATIVE WORKERS, CL[employer]ICAL AND ADMINISTRATIVE WORKERS-C Primary Care Provider Active Start: May 24, 2024 End: May 24, 2024 Vito Panda [employer] ADMINISTRATIVE WORKERS, CLERICAL AND ADMINISTRATIVE WORKERS-C Attending Provider Ac tive Start: May 24, 2024 End: May 24, 2024 Vito Panda [employer] ADMINISTRATIVE WORKERS, CLERICAL AND ADMINISTRATIVE WORKERS-C Referring Provider Ac tive Start: May 24, 2024 End: May 24, 2024 Team Status: Inactive Member Role Status Dates Vito Panda [employer] ADMINISTRATIVE WORKERS, CLERICAL AND ADMINISTRATIVE WORKERS-C Primary Care Provider Active Start: June 07, 2024 End: June 07, 2024 Vito Panda [employer] ADMINISTRATIVE WORKERS, CLERICAL AND ADMINISTRATIVE WORKERS-C Referring Provider Ac tive Start: June 07, 2024 End: June 07, 2024 ANURADHA Buckley Attending Provider Active Start: June 07, 2024 End: June 07, 2024 Team Status: Inactive Member Role Status Dates Vito Panda [employer] ADMINISTRATIVE WORKERS, CLERICAL AND ADMINISTRATIVE WORKERS-C Primary Care Provider Active Start: June 07, 2024 End: June 07, 2024 ANURADHA Buckley Attending Provider Active Start: June 07, 2024 End: June 07, 2024 Marry Davila , [employer]ICAL AND ADMINISTRATIVE WORKERS-C Referring Provider Active Start: June 07, 2024 End: June 07, 2024 Team Status: Inactive Member Role Status Dates Vito Panda [employer] AND ADMINISTRATIVE WORKERS, CLERICAL AND ADMINISTRATIVE WORKERS-C Primary Care Provider Active Start: July 25, 2024 End: July 25, 2024 Vito Panda [employer] ADMINISTRATIVE WORKERS, CLERICAL AND ADMINISTRATIVE WORKERS-C Referring Provider Ac tive Start: July 25, 2024 End: July 25, 2024 Dr. Kristy Frazier DC Attending Provider Active S tart: July 25, 2024 End: July 25, 2024 Team Status: Inactive Member Role Status Dates Vito Panda [employer] ADMINISTRATIVE WORKERS, CLERICAL AND ADMINISTRATIVE WORKERS-C Primary Care Provider Active Start: July 28, 2024 End: July 28, 2024 Vito Panda [employer] ADMINISTRATIVE WORKERS, CLERICAL AND ADMINISTRATIVE WORKERS-C Referring Provider Ac tive Start: July 28, 2024 End: July 28, 2024 Dr. Kristy Frazier DC Attending Provider Active S tart: July 28, 2024 End: July 28, 2024 Team Status: Inactive Member Role Status Dates Vito Panda [employer] ADMINISTRATIVE WORKERS, CLERICAL AND ADMINISTRATIVE WORKERS-C Primary Care Provider Active Start: July 28, 2024 End: July 28, 2024 Dr. Chavez Hernandez MD Attending Provider Active S tart: July 28, 2024 End: July 28, 2024 Team Status: Inactive Member Role Status Dates Vito Panda [employer] ADMINISTRATIVE WORKERS, CL[employer]ICAL AND ADMINISTRATIVE WORKERS-C Primary Care Provider Active Start: August 01, 2024 End: August 01, 2024 Vito Panda [employer] ADMINISTRATIVE WORKERS, CLERICAL AND ADMINISTRATIVE WORKERS-C Referring Provider Ac tive Start: August 01, 2024 End: August 01, 2024 Dr. Kristy Frazier DC Attending Provider Active S tart: August 01, 2024 End: August 01, 2024 Team Status: Inactive Member Role Status Dates Vito Panda [employer] ADMINISTRATIVE WORKERS, CLERICAL AND ADMINISTRATIVE WORKERS-C Primary Care Provider Active Start: August 03, 2024 End: August 03, 2024 Vito Panda [employer] ADMINISTRATIVE WORKERS, CLERICAL AND ADMINISTRATIVE WORKERS-C Referring Provider Ac tive Start: August 03, 2024 End: August 03, 2024 Dr. Kristy Frazier DC Attending Provider Active S tart: August 03, 2024 End: August 03, 2024 Team Status: Active Member Role/Relationship Status Dates Vito Panda [employer] ADMINISTRATIVE WORKERS, CLERICAL AND ADMINISTRATIVE WORKERS-C Primary Care Provider Active Team Status: Inactive Member Role/Relationship Status Dates Vito Panda [employer] ADMINISTRATIVE WORKERS, CLERICAL AND ADMINISTRATIVE WORKERS-C Primary Care Provider Active Start: May 24, 2024 End: May 24, 2024 Vito Panda [employer] ADMINISTRATIVE WORKERS, CLERICAL AND ADMINISTRATIVE WORKERS-C Attending Provider Ac tive Start: May 24, 2024 End: May 24, 2024 Vito Panda [employer] ADMINISTRATIVE WORKERS, CLERICAL AND ADMINISTRATIVE WORKERS-C Referring Provider Ac tive Start: May 24, 2024 End: May 24, 2024 Team Status: Inactive Member Role/Relationship Status Dates Vito Panda [employer] ADMINISTRATIVE WORKERS, CLERICAL AND ADMINISTRATIVE WORKERS-C Primary Care Provider Active Start: June 07, 2024 End: June 07, 2024 Vito Panda [employer] ADMINISTRATIVE WORKERS, CLERICAL AND ADMINISTRATIVE WORKERS-C Referring Provider Ac tive Start: June 07, 2024 End: June 07, 2024 Marry Davila NP-C Attending Provider Active Start: June 07, 2024 End: June 07, 2024 Team Status: Inactive Member Role/Relationship Status Dates Vito Panda [employer] ADMINISTRATIVE WORKERS, CLERICAL AND ADMINISTRATIVE WORKERS-C Primary Care Provider Active Start: June 07, 2024 End: June 07, 2024 Marry Davila NP-C Attending Provider Active Start: June 07, 2024 End: June 07, 2024 Marry Davila NP-C Referring Provider Active Start: June 07, 2024 End: June 07, 2024 Team Status: Inactive Member Role/Relationship Status Dates Vito Panda [employer] AND ADMINISTRATIVE WORKERS, CLERICAL AND ADMINISTRATIVE WORKERS-C Primary Care Provider Active Start: July 25, 2024 End: July 25, 2024 Vito Panda [employer] ADMINISTRATIVE WORKERS, CLERICAL AND ADMINISTRATIVE WORKERS-C Referring Provider Ac tive Start: July 25, 2024 End: July 25, 2024 Dr. Kristy Frazier , [place] Attending Provider Active S tart: July 25, 2024 End: July 25, 2024 Team Status: Inactive Member Role/Relationship Status Dates Vito Panda [employer]ICAL AND ADMINISTRATIVE WORKERS, CLERICAL AND ADMINISTRATIVE WORKERS-C Primary Care Provider Active Start: July 28, 2024 End: July 28, 2024 Vito Panda CL[employer]ICAL AND ADMINISTRATIVE WORKERS, CLERICAL AND ADMINISTRATIVE WORKERS-C Referring Provider Ac tive Start: July 28, 2024 End: July 28, 2024 Dr. Kristy Frazier DC Attending Provider Active S tart: July 28, 2024 End: July 28, 2024 Team Status: Inactive Member Role/Relationship Status Dates Vito Panda [employer]ICAL AND ADMINISTRATIVE WORKERS, CLERICAL AND ADMINISTRATIVE WORKERS-C Primary Care Provider Active Start: July 28, 2024 End: July 28, 2024 Dr. Chavez Hernandez MD Attending Provider Active S tart: July 28, 2024 End: July 28, 2024 Team Status: Inactive Member Role/Relationship Status Dates Vito Panda [employer]ICAL AND ADMINISTRATIVE WORKERS, CLERICAL AND ADMINISTRATIVE WORKERS-C Primary Care Provider Active Start: August 01, 2024 End: August 01, 2024 Vito Panda [employer]ICAL AND ADMINISTRATIVE WORKERS, CLERICAL AND ADMINISTRATIVE WORKERS-C Referring Provider Ac tive Start: August 01, 2024 End: August 01, 2024 Dr. Kristy Frazier DC Attending Provider Active S tart: August 01, 2024 End: August 01, 2024 Team Status: Inactive Member Role/Relationship Status Dates Vito Panda CLERICAL AND ADMINISTRATIVE WORKERS, CLERICAL AND ADMINISTRATIVE WORKERS-C Primary Care Provider Active Start: August 03, 2024 End: August 03, 2024 Vito Panda [employer]ICAL AND ADMINISTRATIVE WORKERS, CLERICAL AND ADMINISTRATIVE WORKERS-C Referring Provider Ac tive Start: August 03, 2024 End: August 03, 2024 Dr. Kristy Frazier DC Attending Provider Active S tart: August 03, 2024 End: August 03, 2024 Team Status: Inactive Member Role/Relationship Status Dates Vito Panda [employer] AND ADMINISTRATIVE WORKERS, CLERICAL AND ADMINISTRATIVE WORKERS-C Primary Care Provider Active Start: August 16, 2024 End: August 16, 2024 Vito Panda CL[employer]ICAL AND ADMINISTRATIVE WORKERS, CLERICAL AND ADMINISTRATIVE WORKERS-C Referring Provider Ac tive Start: August 16, 2024 End: August 16, 2024 Seven Dickinson CLERICAL AND ADMINISTRATIVE WORKERS-C Attending Provider Active Star t: August 16, 2024 End: August 16, 2024 Team Status: Inactive Member Role/Relationship Status Dates Vito Panda CLERICAL AND ADMINISTRATIVE WORKERS, CLERICAL AND ADMINISTRATIVE WORKERS-C Primary Care Provider Active Start: July 25, 2024 End: July 25, 2024 Vito Panda CLERICAL AND ADMINISTRATIVE WORKERS, CLERICAL AND ADMINISTRATIVE WORKERS-C Referring Provider Ac tive Start: July 25, 2024 End: July 25, 2024 Dr. Kristy Frazier DC Attending Provider Active S tart: July 25, 2024 End: July 25, 2024 Team Status: Inactive Member Role/Relationship Status Dates Vito Panda CLERICAL AND ADMINISTRATIVE WORKERS, CLERICAL AND ADMINISTRATIVE WORKERS-C Primary Care Provider Active Start: July 28, 2024 End: July 28, 2024 Vito Panda CL[employer]ICAL AND ADMINISTRATIVE WORKERS, CLERICAL AND ADMINISTRATIVE WORKERS-C Referring Provider Ac tive Start: July 28, 2024 End: July 28, 2024 Dr. Kristy Frazier DC Attending Provider Active S tart: July 28, 2024 End: July 28, 2024 Team Status: Inactive Member Role/Relationship Status Dates Vito Panda CL[employer]ICAL AND ADMINISTRATIVE WORKERS, CLERICAL AND ADMINISTRATIVE WORKERS-C Primary Care Provider Active Start: July 28, 2024 End: July 28, 2024 Dr. Chavez Hernandez MD Attending Provider Active S tart: July 28, 2024 End: July 28, 2024 Team Status: Inactive Member Role/Relationship Status Dates Vito Panda CLERICAL AND ADMINISTRATIVE WORKERS, CLERICAL AND ADMINISTRATIVE WORKERS-C Primary Care Provider Active Start: August 01, 2024 End: August 01, 2024 Vito Panda CL[employer]ICAL AND ADMINISTRATIVE WORKERS, CLERICAL AND ADMINISTRATIVE WORKERS-C Referring Provider Ac tive Start: August 01, 2024 End: August 01, 2024 Dr. Kristy Frazier DC Attending Provider Active S tart: August 01, 2024 End: August 01, 2024 Team Status: Active Member Role/Relationship Status Dates Vito Panda CL[employer]ICAL AND ADMINISTRATIVE WORKERS, CLERICAL AND ADMINISTRATIVE WORKERS-C Primary Care Provider Active Start: August 02, 2024 Dr. Kristy Frazier DC Attending Provider Active S tart: August 02, 2024 Team Status: Inactive Member Role/Relationship Status Dates Vito Panda [employer]ICAL AND ADMINISTRATIVE WORKERS, CLERICAL AND ADMINISTRATIVE WORKERS-C Primary Care Provider Active Start: August 03, 2024 End: August 03, 2024 Vito Panda CL[employer]ICAL AND ADMINISTRATIVE WORKERS, CLERICAL AND ADMINISTRATIVE WORKERS-C Referring Provider Ac tive Start: August 03, 2024 End: August 03, 2024 Dr. Kristy Frazier DC Attending Provider Active S tart: August 03, 2024 End: August 03, 2024 Team Status: Inactive Member Role/Relationship Status Dates Vito Panda CLERICAL AND ADMINISTRATIVE WORKERS, CLERICAL AND ADMINISTRATIVE WORKERS-C Primary Care Provider Active Start: August 16, 2024 End: August 16, 2024 Vito Panda CLERICAL AND ADMINISTRATIVE WORKERS, CLERICAL AND ADMINISTRATIVE WORKERS-C Referring Provider Ac tive Start: August 16, 2024 End: August 16, 2024 Seven Moomaw , CLERICAL AND ADMINISTRATIVE WORKERS-C Attending Provider Active Star t: August 16, 2024 End: August 16, 2024 Team Status: Inactive Member Role/Relationship Status Dates Vito Panda NP, CLERICAL AND ADMINISTRATIVE WORKERS-C Primary Care Provider Active Start: September End: October 06, 2024 Vito Panda NP, [employer] AND ADMINISTRATIVE WORKERS-C Referring Provider Active Start: October 06, 2024 End: October 06, 2024 Marry Davila NP-C Attending Provider Active Start: October 06, 2024 End: October 06, 2024 INFORMATION SOURCE (unrecogn ized section and content) DATE CREATED AUTHOR 09/22/2024 [facility] DATE CREATED AUTHOR AUTHOR'S ORGANIZ ATION 10/08/2024 [facility] FOR RECORDS PERTAINING TO PATIENTS WHO ARE OR HAVE BEEN ENROLLED IN A CHEMICAL DEPENDENCY/SUBSTANCEABUSE PROGRAM, SOME INFORMATION MAY BE OMITTED. This clinical summary was aggregated from multiple sources. Caution should be exercised in using it in the provision of clinical care. This summary normalizes information from multiple sources, and as a consequence, information in this document may materially change the coding, format and clinical context of patient data. In addition, data may be omitted in some cases. CLINICAL DECISIONS SHOULD BE BASED ON THE PRIMARY CLINICAL RECORDS. [employer] provides no warranty or guarantee of the accuracy or completeness of information in this document.
[2024-10-28 18:55] LABS: Vitamin D,25 Hydroxy 33.5 ng/mL (30-100)
== END | disposition home or self-care (01) ==
LOC: MTLAB 16:25
PROVIDERS: PCP Nurse Practitioner Family; Referring Provider Nurse Practitioner Family; Visit Provider Nurse Practitioner Family
DX: N92.6 Irregular menstruation, unspecified (principal); R68.82 Decreased libido; L67.8 Other hair color and hair shaft abnormalities
CPT/HCPCS: 36415; 82306; 82627; 83036; 84402; 84439; 84443; 82626

== ENCOUNTER → 2024-12-27 | Outpatient (CLI) | payer OTHER, SELFPAY | END | disposition home or self-care (01) | LOC: MTLAB 13:55 | PROVIDERS: PCP Nurse Practitioner Family; Referring Provider Nurse Practitioner Family; Visit Provider Nurse Practitioner Family | DX: L67.8 Other hair color and hair shaft abnormalities (principal); R68.82 Decreased libido | CPT/HCPCS: 36415; 84402 ==

== ENCOUNTER → 2025-01-12 | Outpatient (CLI) | payer OTHER, SELFPAY | END | disposition home or self-care (01) | LOC: LABSPEC 15:41 | PROVIDERS: PCP Nurse Practitioner Family; Referring Provider Nurse Practitioner Family; Visit Provider Nurse Practitioner Family | DX: Z11.3 Encounter for screening for infections with a predominantly sexual mode of transmission (principal) | CPT/HCPCS: 87491; 87591 ==

== ENCOUNTER → 2025-01-17 | Outpatient (CLI) | payer OTHER, SELFPAY ==
--- NOTE | 2025-01-17 18:02 | US_ITS ---
PROCEDURE: PELVIC W/ TRANSVAGINAL 01/17/2025 REASON FOR EXAM: IRREG MENSES TECHNIQUE: Procedure Code: [id number] Modality: US Procedure: PELVIC W/ TRANSVAGINAL FINDINGS: Uterus measures 7.2 x 3.7 x 2.7 cm. It is anteverted position. No uterine fibroids are noted. Endometrial stripe measures 11 mm. It is hyperechoic. Nabothian cysts are noted. Right ovary measures 3.4 x 2.3 x 2.2 cm and left ovary measures 3.8 x 2.4 x 2.7 cm. There is normal bilateral symmetrical blood flow within bilateral ovaries. Trace free fluid within the cul-de-sac. US/Pelvic w/ Transvaginal IMPRESSION: Mild thickening of the endometrial stripe. Otherwise unremarkable exam. Reading Location: [facility]
== END | disposition home or self-care (01) ==
LOC: US 17:40
PROVIDERS: PCP Nurse Practitioner Family; Referring Provider Nurse Practitioner Family; Visit Provider Nurse Practitioner Family
DX: N92.6 Irregular menstruation, unspecified (principal)
CPT/HCPCS: 76830; 76856